=== PATIENT | male | born 1960 | race Caucasian/White ===

== ENCOUNTER 2019-12-02 18:07 | Emergency (ER) | payer SELFPAY ==
[2019-12-02] VITALS (23 sets, daily range): BP systolic 140–174; BP diastolic 83–147; PULSE 91–111; RESP 13–22; TEMP 36.2; O2SAT 93–96
--- NOTE | 2019-12-02 18:00 | RT.EKG_ITS ---
APPROVED REPORT Exam: Resting ECG Patient Location: E HR:102 bpm ECG Measurements Heart Rate 102 AXIS [place] [id number] P [id number] QRSd 101 QRS -72 QT 357 T 47 QTc 467 Conclusion Sinus, tachycardia with V rate 102, no st elevation
--- NOTE | 2019-12-02 18:51 | ED.GENADUL_ITS ---
Discharge Plan Disposition Patient Disposition: HOME Condition: Improving Discharge Details Chief Complaint: SOB Clinical Impression: Asthma exacerbation Primary Care Provider: Carol,Local ED Provider: Moy Baum Home Meds and New Rx's Prescriptions: New prednisone 20 mg tablet 60 mg PO DAILY 5 Days Qty: 15 RF: 0 Continued albuterol sulfate 90 mcg/actuation Hfa Aerosol Inhaler 2 puff INHALATION PRN PRNRF: 0 fluticasone propion-salmeterol [Advair Diskus] 250-50 mcg/dose Blister With Device 1 ea INHALATION DAILY RF: 0 Discharge Instructions Instructions: Asthma (ED), Bronchospasm (ED) Additional Instructions: Your COVID-19 test is pending. Please take the prednisone for its entire prescribed course. Resume your Advair twice daily. May use albuterol as needed 2 puffs up to every 4 hours. If you feel you need to use the inhaler more frequently, please return for reevaluation. Return to develop a fever, worsening breathing, or any other acute concerns. Your liver enzymes were slightly elevated Stand Alone Forms: PENDING COVID-19 TESTING Medical Decision Making 59-year-old male visiting his family from his home in [place]. He has been exposed to dust and dander from farm animals and now has 2 to 3 days of cough with wheezing. He has not had a fever nor significant production of sputum. States it feels like previous asthma exacerbations. He arrives with a slight tachycardia, no fever, oxygenating 95 to 96% on room air. Exam does reveal diffuse expiratory wheezes. Differential diagnosis includes exacerbation of underlying reactive airway disease, bronchitis, must exclude COVID-19 given his travel. IV access was established, patient given Solu-Medrol, inhaled beta agonists. He is referred for chest x-ray. Labs are reassuring with a white count 7.9, hematocrit 48, platelets 237. Sodium 137, potassium 3.4, chloride 99, bicarb 24, BUN 10, creatinine 1.0. Note of total bili of 2.0, AST 60, ALT 72. Troponin negative. Chest x-ray without focal infiltrate. Patient symptoms improved following steroids and beta agonist. Consistent with reactive airway disease exacerbation. Will treat with a burst of oral steroids, I have refilled his rescue inhaler as well as his Advair. Note is made of slightly increased liver enzymes which I discussed with the patient and he will have rechecked by his regular doctor. He does not have abdominal pain, nausea or other symptoms. He is stable and improved and appropriate for outpatient management of asthma exacerbation. HPI General Mode of arrival: ambulatory . Date/Time Provider Initiated Documentation: 12/02/19 18:37 . Limitations to Documentation: no limitations . Information obtained by: patient . History of Present Illness 59 year old M presents to the emergency department with the chief complaint of Cough and shortness of breath, described as moderate, and is localized to the chest. Patient reports no radiation. Patient started experiencing this day(s) and it has been constant. No relieving factors improve symptom(s), No exacerbating factors reported . Patient notes cough and shortness of breath; denies fever/chills. Patient did receive the following treatments prior to arrival, none Related Data Home Medications Medication Instructions Recorded Confirmed albuterol sulfate 2 puff INHALATION PRN PRN 12/02/19 12/02/19 fluticasone propion-salmeterol 1 ea INHALATION DAILY 12/02/19 12/02/19 [Advair Diskus] prednisone 60 mg PO DAILY 5 Days #15 tab 12/02/19 Previous Rx's Medication Instructions Recorded prednisone 60 mg PO DAILY 5 Days #15 tab 12/02/19 Allergies Allergy/AdvReac Type Severity Reaction Status Date / Time animal dander AdvReac Intermediate asthma Unverified 12/02/19 18:24 pollen extracts AdvReac Intermediate asthma Unverified 12/02/19 18:23 General Stated Complaint: SOB LEE: 2 Review of Systems Narrative: Ran out of albuterol, has misplaced Advair. Cough and recent travel. No chest pain. No production of sputum. Denies fever or chills. 6 systems reviewed and otherwise negative [facility] Social History Smoking/Tobacco Use Status: Former Tobacco Use Alcohol Intake: former Drug use: Current Sobriety Substance use type: does not use Details: has not smoked in years currently abstaining from alcohol no substance use in 10 years Do you feel safe at home: Yes Do you feel safe in your relationship?: Yes Exam Narrative Exam Narrative: GEN: awake, alert, oriented 3. Pleasant, well groomed, interactive. HEAD: Normocephalic, atraumatic ENT: Mucous membranes moist, oropharynx unremarkable, External ear exam unremarkable EYES: PERRL, EOMI NECK: Full ROM, no BRANDEN, no menigismus CHEST/RESP: Nontender, diffuse bilateral end expiratory wheeze CARDIOVASCULAR: Regular, tachycardic, no murmur, rub delisa. 2+ Rad pulse bilateral ABDOMEN: Soft, nontender, no mass. +Bowel sounds EXT: Full ROM, no edema, no rash Neuro: Grossly normal neurologic exam, conversant, interactive. Psych: Speech fluent, thoughts congruent, affect normal Course Vital Signs Vital signs: Vital Signs Temperature 36.2 C L 12/02/19 18:15 Pulse 111 H 12/02/19 18:15 Respiratory Rate 20 12/02/19 18:15 Blood Pressure 174/103 H 12/02/19 18:15 Pulse Oximetry 96 12/02/19 18:15 Temperature 36.2 C L 12/02/19 18:15 Temperature Source Skin 12/02/19 18:15 Pulse 111 H 12/02/19 18:15 Respiratory Rate 20 12/02/19 18:15 Respiratory Effort Incrsd Work of Breathing 12/02/19 18:25 Blood Pressure 174/103 H 12/02/19 18:15 Pulse Oximetry 96 12/02/19 18:15 Oxygen Delivery Method Room Air 12/02/19 18:15 Oxygen Flow Rate 0 12/02/19 18:15 Pain Level 0 12/02/19 18:15
[2019-12-02 19:24] LABS: Abs Immature Grans 0.02 10^3/uL (0.0-0.06); Absolute Basophil Count 0.04 10^3/uL (0.0-0.2); Absolute Eosinophil Count 0.31 10^3/uL (0.0-0.7); Absolute Lymphocyte Count 1.28 10^3/uL (1.2-3.4); Absolute Monocyte Count 0.79 10^3/uL (0.1-0.8); Absolute Neutrophil Count 5.47 10^3/uL (1.2-6.7); Basophils % 0.5; Eosinophils % 3.9; HCT 48.6 % (40.0-50.0); HGB 17.6 g/dL (13.5-17.5); Immature Grans % 0.3; Lymphocytes % 16.2; MCHC 36.2 % (32.0-36.0); MPV 10.6 fL (8.0-11.0); Neutrophils % 69.1; Nucleated RBC 0 %; Platelet Count 237 10^3/uL (130-400); RBC 5.34 10^6/uL (4.36-5.78); RDW 11.4 % (11.8-14.1); RDW-SD 37.9 fL; WBC 7.91 10^3/uL (4.4-10.8)
[2019-12-02] MEDS: Budesonide/Formoterol 160/4.5 6 GM 60 PUFF INH IH (19:40)
[2019-12-02 19:43] LABS: ALT 72 U/L (16-63); AST 60 U/L (15-37); Albumin 4.5 g/dL (3.4-5.0); Alkaline Phosphatase 97 U/L (46-116); Anion Gap 13.3 mmol/L (3-11); BUN 10 mg/dL (7-18); CO2 24.7 mmol/L (21.0-32.0); CREATININE 1.07 mg/dL (0.70-1.30); Calcium 9.4 mg/dL (8.5-10.1); Chloride 99 mmol/L (98-107); Glucose 110 mg/dL (74-106); Potassium 3.4 mmol/L (3.5-5.1); Sodium 137 mmol/L (136-145); Total Protein 8.2 g/dL (6.4-8.2); Troponin I < 0.05 ng/mL (<0.06)
--- NOTE | 2019-12-02 19:48 | DI.RAD_ITS ---
EXAM: XR PORTABLE CHEST AP CLINICAL HISTORY: cough, wheeze TECHNIQUE: 2D digital imaging was performed. COMPARISON: No exams were available for comparison FINDINGS: MEDIASTINUM: Normal. HEART: Normal. PULMONARY VASCULATURE: Normal. LUNGS: Clear. PLEURAL SPACE: No pleural effusion or pneumothorax. BONE:Within normal limits for the patient's age. OTHER FINDINGS:Normal. IMPRESSION: No acute pulmonary findings. DATA REPOSITORY: RADIATION DOSE DELIVERED:
--- NOTE | 2019-12-02 20:01 | DI.VRAD_ITS ---
PROCEDURE INFORMATION: Exam: XR Chest, 1 View Exam date and time: 12/02/2019 7:49 PM Age: 59 years old Clinical indication: Cough and wheezing TECHNIQUE: Imaging protocol: XR of the chest Views: 1 view. COMPARISON: No relevant prior studies available. FINDINGS: Lungs: Lungs are adequately inflated and symmetric. No focal consolidation or pulmonary edema. Pleural space: No pleural effusion. No pneumothorax. Heart/Mediastinum: Cardiomediastinal contours within normal limits. Bones/joints: No acute osseous finding. IMPRESSION: No acute cardiopulmonary finding. Dictated and Authenticated by: Pasquale Dey MD. Ordering:EARNEST Winter MD
[2019-12-05 19:22] LABS: Patient Race White; SARS-CoV-2 RNA Undetected (Undetected); SARS-CoV-2 Specimen Source Nasopharynx
--- NOTE | 2019-12-07 09:14 | NUR.NOTE ---
12/07/19 0912 Patient notified of negative Covid results.
== END 2019-12-02 20:24 | disposition home or self-care (01) ==
PROVIDERS: Emergency Provider Emergency Medicine
DX: J45.901 Unspecified asthma with (acute) exacerbation (principal); Z87.891 Personal history of nicotine dependence; Z11.59 Encounter for screening for other viral diseases
CPT/HCPCS: 36415; 80053; 93005; 99284; U0003; 71045; 83735; 84484; 85025; 93010

== ENCOUNTER 2019-12-20 15:46 | Emergency (ER) | payer SELFPAY ==
[2019-12-20] VITALS (34 sets, daily range): BP systolic 138–176; BP diastolic 88–107; PULSE 104–114; RESP 8–26; TEMP 37–37.4; O2SAT 90–97
[2019-12-20] MEDS: LORazepam 2 MG/ML VIAL 1 MG IVP (16:27)
[2019-12-20] MEDS: Ondansetron 4 MG/2 ML VIAL IVP (16:27)
[2019-12-20] MEDS: Normal Saline 1,000 ML 1000 ML IV ×2 (16:28→17:34)
[2019-12-20 16:36] LABS: Abs Immature Grans 0.03 10^3/uL (0.0-0.06); Absolute Basophil Count 0.03 10^3/uL (0.0-0.2); Absolute Eosinophil Count 0.03 10^3/uL (0.0-0.7); Absolute Lymphocyte Count 1.53 10^3/uL (1.2-3.4); Absolute Monocyte Count 0.49 10^3/uL (0.1-0.8); Absolute Neutrophil Count 5.29 10^3/uL (1.2-6.7); Basophils % 0.4; Eosinophils % 0.4; HCT 49.1 % (40.0-50.0); HGB 17.6 g/dL (13.5-17.5); Immature Grans % 0.4; Lymphocytes % 20.7; MCHC 35.8 % (32.0-36.0); MCV 91.9 fL (80-95); MPV 9.9 fL (8.0-11.0); Monocytes % 6.6; Neutrophils % 71.5; Nucleated RBC 0 %; Platelet Count 275 10^3/uL (130-400); RBC 5.34 10^6/uL (4.36-5.78); RDW 12.1 % (11.8-14.1)
[2019-12-20] MEDS: THIAMINE 100 MG in Normal Saline 100 ML 200 MG IVPB (16:46)
[2019-12-20 16:47] LABS: ALT 165 U/L (16-63); AST 101 U/L (15-37); Albumin 4.2 g/dL (3.4-5.0); Alkaline Phosphatase 114 U/L (46-116); Anion Gap 17.8 mmol/L (3-11); BUN 8 mg/dL (7-18); Bilirubin, Total 1.2 mg/dL (0.2-1.0); CO2 23.2 mmol/L (21.0-32.0); CREATININE 1.06 mg/dL (0.70-1.30); Calcium 8.3 mg/dL (8.5-10.1); Chloride 98 mmol/L (98-107); Glucose 114 mg/dL (74-106); Magnesium 2.1 mg/dL (1.8-2.4); Potassium 3.4 mmol/L (3.5-5.1); Sodium 139 mmol/L (136-145); Total Protein 7.9 g/dL (6.4-8.2)
[2019-12-20 16:49] LABS: ETHANOL BLOOD > 300.0 mg/dL (<3)
[2019-12-20] MEDS: Potassium Chloride 20 MEQ TABCR 40 MEQ PO (16:59)
--- NOTE | 2019-12-20 17:12 | W.ED.GENAD ---
Discharge Plan Disposition Patient Disposition: HOME Condition: Fair Discharge Details Clinical Impression: Alcohol intoxication Primary Care Provider: Becky Medina ED Provider: Mirna Moore Home Meds and New Rx's Prescriptions: Continued albuterol sulfate 90 mcg/actuation Hfa Aerosol Inhaler 2 puff INHALATION PRN PRNRF: 0 fluticasone propion-salmeterol [Advair Diskus] 250-50 mcg/dose Blister With Device 1 ea INHALATION DAILY RF: 0 Discharge Instructions Instructions: Alcohol Intoxication (ED) Additional Instructions: do not drink alcohol. use resources provided for alcohol rehabilitation Referrals: Becky Medina [Primary Care Provider] - (follow up with pcp as soon as possible. ) Medical Decision Making Patient presents for what he states is acute alcohol withdrawal. He states he feels nauseated, having abdominal pain, feels shaky. States he last drank at 11 AM. Denies any history of alcohol seizures. Will establish IV given 2 L of normal saline infused. Is given Ativan 1 mg IV push and received thiamine 100 mg IV. Received Protonix 40 mg IV push and GI cocktail with some improvement in his symptoms. A golf coach was consulted and she came in and met with him. Plan is for outpatient follow-up. He is with his mother both are in agreement with this plan he is medically stable, tolerating p.o. and is ready for discharge to home will follow-up with outpatient rehab Lab Data Lab results reviewed: Yes I reviewed the patient's lab results. Lab results narrative: Laboratory Tests Range/Units 12/20/19 12/20/19 12/20/19 16:20 16:20 16:20 WBC (4.4-10.8) 10^3/uL 7.40 RBC (4.36-5.78) 10^6/uL 5.34 Hgb (13.5-17.5) g/dL 17.6 H Hct (40.0-50.0) % 49.1 MCV (80-95) fL 91.9 MCH (27.0-33.0) pg 33.0 MCHC (32.0-36.0) % 35.8 RDW (11.8-14.1) % 12.1 Plt Count (130-400) 10^3/uL 275 MPV (8.0-11.0) fL 9.9 Immature Gran % 0.4 Neutrophils % 71.5 Lymphocytes % 20.7 Monocytes % 6.6 Eosinophils % 0.4 Basophils % 0.4 Nucleated RBC % % 0 Absolute Neutrophils (1.2-6.7) 10^3/uL 5.29 Absolute Lymphocytes (1.2-3.4) 10^3/uL 1.53 Absolute Monocytes (0.1-0.8) 10^3/uL 0.49 Absolute Eosinophils (0.0-0.7) 10^3/uL 0.03 Absolute Basophils (0.0-0.2) 10^3/uL 0.03 Sodium (136-145) mmol/L 139 Potassium (3.5-5.1) mmol/L 3.4 L Chloride (98-107) mmol/L 98 Carbon Dioxide (21.0-32.0) mmol/L 23.2 Anion Gap (3-11) mmol/L 17.8 H BUN (7-18) mg/dL 8 Creatinine (0.70-1.30) mg/dL 1.06 Estimated GFR/1.73 m2 (mL/min/1.73m2) >= 60.00 Glucose (74-106) mg/dL 114 H Calcium (8.5-10.1) mg/dL 8.3 L Magnesium (1.8-2.4) mg/dL 2.1 Total Bilirubin (0.2-1.0) mg/dL 1.2 H AST (15-37) U/L 101 H ALT (16-63) U/L 165 H Alkaline Phosphatase (46-116) U/L 114 Total Protein (6.4-8.2) g/dL 7.9 Albumin (3.4-5.0) g/dL 4.2 Lipase (73-393) U/L 280 Ethyl Alcohol (<3) mg/dL > 300.0 HPI General Date/Time Provider Initiated Documentation: 12/20/19 15:53. Limitations to Documentation: no limitations. Information obtained by: patient and family (Mother). HPI Narrative: This is a 59-year-old male patient with a significant history of alcohol abuse who states he has gone through alcohol withdrawal but no withdrawal seizures who presents to the emergency department with reports of anxiety nausea states his last drink was at 11 this morning states he has been drinking heavily for 3 days. Previously has been sober for a month prior to that. He has had no fevers no chills or recent illness. Is reporting nausea with no vomiting Related Data Home Medications Medication Instructions Recorded Confirmed albuterol sulfate 2 puff INHALATION PRN PRN 12/02/19 12/20/19 fluticasone propion-salmeterol 1 ea INHALATION DAILY 12/02/19 12/20/19 [Advair Diskus] Allergies Allergy/AdvReac Type Severity Reaction Status Date / Time animal dander AdvReac Intermediate asthma Unverified 12/20/19 16:00 pollen extracts AdvReac Intermediate asthma Unverified 12/20/19 16:00 General Stated Complaint: ETOHWithdr LEE: 3 Review of Systems Constitutional Constitutional: Reports system reviewed and no additional complaints, except as documented and Denies fever(s) ENT Ears, Nose, Mouth, and Throat: Denies dizziness Cardiovascular Cardiovascular: Denies chest pain and Denies dyspnea Respiratory Respiratory: Denies cough and Denies dyspnea Gastrointestinal Gastrointestinal: Denies coffee ground emesis, Denies constipation, Denies diarrhea, Reports nausea and Denies vomiting Musculoskeletal Musculoskeletal: Denies arthralgias and Denies joint swelling Integumentary/Breasts Skin/Breast: Denies lesions Neurologic Neurologic: Denies confusion and Denies dizziness Psychiatric Psychiatric: Denies confusion, Denies homicidal ideation and Denies suicidal ideation Hematologic/Lymphatic Hematologic/Lymphatic: Denies easy bleeding and Denies easy bruising [facility] Social History Smoking/Tobacco Use Status: Former Tobacco Use Alcohol Intake: current Alcohol Intake frequency: a few times a week Alcohol type: hard liquor Drug use: Never Substance use type: does not use Details: has not smoked in years currently abstaining from alcohol no substance use in 10 years Do you feel safe at home: Yes Do you feel safe in your relationship?: Yes Exam Const Nutritional Appearance: overweight Orientation: alert, awake and oriented x3 Other: Intoxicated HENMT Head: normal to inspection, normocephalic and atraumatic Resp Effort & Inspection: normal respiratory effort Auscultation: clear to auscultation bilaterally Cardio Rate: tachycardic Rhythm: regular rhythm GI Inspection: normal to inspection Palpation: soft Auscultation: normal bowel sounds Skin Lesions: no lesions Rashes: no rashes Course Vital Signs Vital signs: Vital Signs Temperature 37 C 12/20/19 15:56 Pulse 114 H 12/20/19 15:56 Respiratory Rate 18 12/20/19 15:56 Blood Pressure 157/107 H 12/20/19 15:56 Pulse Oximetry 97 12/20/19 15:56 Temperature 37.4 C 12/20/19 16:26 Temperature Source Tympanic 12/20/19 16:26 Pulse 109 H 12/20/19 17:00 Pulse 108 H 12/20/19 17:01 Respiratory Rate 18 12/20/19 17:01 Respiratory Effort Non-Labored 12/20/19 16:00 Respiratory Pattern Normal 12/20/19 16:34 Blood Pressure 145/96 H 12/20/19 17:00 Blood Pressure Mean 108 12/20/19 17:00 Blood Pressure Position Sitting 12/20/19 15:56 Pulse Oximetry 93 12/20/19 16:45 Oxygen Delivery Method Room Air 12/20/19 16:26 Oxygen Flow Rate 0 12/20/19 16:26 Pain Level 9 12/20/19 15:56 Lab/Test Results Lab/Test Results: Laboratory Tests Range/Units 12/20/19 12/20/19 16:20 16:20 WBC (4.4-10.8) 10^3/uL 7.40 RBC (4.36-5.78) 10^6/uL 5.34 Hgb (13.5-17.5) g/dL 17.6 H Hct (40.0-50.0) % 49.1 MCV (80-95) fL 91.9 MCH (27.0-33.0) pg 33.0 MCHC (32.0-36.0) % 35.8 RDW (11.8-14.1) % 12.1 Plt Count (130-400) 10^3/uL 275 MPV (8.0-11.0) fL 9.9 Immature Gran % 0.4 Neutrophils % 71.5 Lymphocytes % 20.7 Monocytes % 6.6 Eosinophils % 0.4 Basophils % 0.4 Nucleated RBC % % 0 Absolute Neutrophils (1.2-6.7) 10^3/uL 5.29 Absolute Lymphocytes (1.2-3.4) 10^3/uL 1.53 Absolute Monocytes (0.1-0.8) 10^3/uL 0.49 Absolute Eosinophils (0.0-0.7) 10^3/uL 0.03 Absolute Basophils (0.0-0.2) 10^3/uL 0.03 Sodium (136-145) mmol/L 139 Potassium (3.5-5.1) mmol/L 3.4 L Chloride (98-107) mmol/L 98 Carbon Dioxide (21.0-32.0) mmol/L 23.2 Anion Gap (3-11) mmol/L 17.8 H BUN (7-18) mg/dL 8 Creatinine (0.70-1.30) mg/dL 1.06 Estimated GFR/1.73 m2 (mL/min/1.73m2) >= 60.00 Glucose (74-106) mg/dL 114 H Calcium (8.5-10.1) mg/dL 8.3 L Magnesium (1.8-2.4) mg/dL 2.1 Total Bilirubin (0.2-1.0) mg/dL 1.2 H AST (15-37) U/L 101 H ALT (16-63) U/L 165 H Alkaline Phosphatase (46-116) U/L 114 Total Protein (6.4-8.2) g/dL 7.9 Albumin (3.4-5.0) g/dL 4.2 Ethyl Alcohol (<3) mg/dL > 300.0
[2019-12-20 18:19] LABS: Lipase 280 U/L (73-393)
[2019-12-20] MEDS: Pantoprazole 40 MG VIAL IVP (18:19)
[2019-12-20] MEDS: Lidocaine 2% Viscous 15 ML CUP (19:14)
[2019-12-20] MEDS: Mylanta Suspension 30 ML CUP (19:15)
== END 2019-12-20 19:40 | disposition home or self-care (01) ==
PROVIDERS: Emergency Provider Nurse Practitioner Acute Care
DX: F10.230 Alcohol dependence with withdrawal, uncomplicated (principal); F10.220 Alcohol dependence with intoxication, uncomplicated; Y90.8 Blood alcohol level of 240 mg/100 ml or more; R11.0 Nausea; F41.9 Anxiety disorder, unspecified
CPT/HCPCS: 36415; 80053; 83690; 96361; 96365; 96375; 99284; 80320; 83735; 85025; J2060; J2405

== ENCOUNTER 2019-12-22 01:36 | Emergency (ER) | payer SELFPAY ==
--- NOTE | 2019-12-22 01:30 | DI.CT_ITS ---
EXAM: CT ABDOMEN PELVIS W CLINICAL HISTORY: abdominal pain, nausea vomit. TECHNIQUE: Imaging Protocol: Axial computed tomography images with coronal and sagittal reformatted images were created and reviewed CONTRAST MATERIAL: Intravenous: Omnipaque 350 Contrast volume:100 cc Oral: / no COMPARISON: No exams were available for comparison FINDINGS: ABDOMEN: Lung Bases: Normal where visualized. Liver: Marked fatty infiltration.. No measurable mass. Gallbladder and biliary tract: Status post cholecystectomy. No biliary dilatation. Pancreas: Normal density, no abnormal calcifications or inflammatory process. Spleen: Normal. Kidneys: Normal size, contour and axis. No radiodense stones or obstructive uropathy. No masses seen. Adrenal glands: No masses seen. Abdominal Aorta: Abdominal portion non-dilated. Mild atherosclerotic changes. Retro aortic left r enal vein. PELVIS: Bladder: Symmetric distention, no gross wall thickening. Bowel: Diverticulosis of the sigmoid. No evidence of diverticulitis. There is a question of mild wa ll thickening of the ascending colon which could indicate colitis. The patient is status post append ectomy. There is no small bowel dilatation. Peritoneal cavity: No ascites, collection or mesenteric inflammatory response. Bones: Right hip prosthesis. Mild degenerative changes in the spine. Reproductive organs: Within normal limits. Lymph nodes: Unremarkable. Impression: Sigmoid diverticulosis. Question wall thickening versus nondistention of the ascending colon. Fatty liver. RADIATION DOSE DELIVERED: 835.17mGy.cm Total DLP DATA REPOSITORY: All CT scans at this facility are submitted to the National Radiology Data Registry (NRDR) Dose Index Registry (DIR) with the [employer] (ACR). RADIATION OPTIMIZATION: All CT scans at this facility use at least one of these dose optimization te chniques: automated exposure control; mA and/or kV adjustment per patient size (includes targeted exa ms where dose is matched to clinical indication); or iterative reconstruction.
[2019-12-22 01:40] VITALS: BP 186/102; PULSE 95; RESP 20; TEMP 36.5
--- NOTE | 2019-12-22 01:46 | ED.GENADUL_ITS ---
Discharge Plan Disposition Patient Disposition: HOME Condition: Stable Discharge Details Clinical Impression: Alcohol withdrawal, Abdominal pain Primary Care Provider: None,None ED Provider: Alfonzo Giordano Home Meds and New Rx's Prescriptions: New lorazepam 2 mg tablet See Rx Instructions .ROUTE .COMPLEX PRNQty: 12 RF: 0 Continued albuterol sulfate 90 mcg/actuation Hfa Aerosol Inhaler 2 puff INHALATION PRN PRNRF: 0 fluticasone propion-salmeterol [Advair Diskus] 250-50 mcg/dose Blister With Device 1 ea INHALATION DAILY RF: 0 Discharge Instructions Instructions: Abuse of Alcohol (ED), Alcohol Withdrawal (ED) Additional Instructions: do not drink alcohol if you take the lorazepam [facility] number is [phone] if you feel you are becoming more ill, have severe worsening pain or persistent vomit return to the emergency department Medical Decision Making 59 yo male with hx of alcohol abuse who was sober for 7 months but recently relapsed comes in with complaint of feeling like he is in withdrawal. Was seen for same 2 days ago and improved with IV ativan and met with head golf coach and d/c'd home but started drinking again and last drank aroud 8am yesterday and tonight started to feel shaky and have persistent dry heaves. Denies chest pain/pressure, does have some abdominal discomfort and is tender without guarding in the mid abdomen. Mild tremors of his hands, states he does feel anx ious. suspect alcohol withdrawal and will tx with ativan, evaluate for pancreatitis and also obtain ct to evaluate for possible sbo given his pain and reassess. Denies other drug use pt feels much better after ativan, no longer has abodminal tenderness, labs show no acute changes, has mild elevation in lft's likely from alcohol use. He has no tremors now, no tachycardia and feels well enough to go home. He would like to start medication to help him through the symptoms of withdrawal. HAd long discusssion of pros and cons and he understands the risks of drinking alcohol with medication such as ativan and has capacity to make his own decisions and would still like to try it. Will start oral ativan taper. ADvised to call head golf coach in the AM and return precautions given Differential Diagnosis Differential Diagnosis: anxiety, alcohol withdrawal, sbo, pancreatitis Medical Records Medical records reviewed: Yes I reviewed the patient's medical records. Imaging Data Radiologic Study: Attestation: I personally reviewed and interpreted this imaging study as follows: Imaging: CT Scan Radiologist's impression: nonobstucted nonspecific bowel gas pattern Lab Data Lab results reviewed: Yes I reviewed the patient's lab results. HPI General Mode of arrival: ambulatory . Date/Time Provider Initiated Documentation: 12/22/19 01:37 . Limitations to Documentation: no limitations . Information obtained by: patient . History of Present Illness 59 year old M presents to the emergency department with the chief complaint of alcohol withdrawal, described as moderate, Patient started experiencing this hour(s) (12) and it has been constant. No relieving factors improve symptom(s), No exacerbating factors reported . Patient did receive the following treatments prior to arrival, none Related Data Home Medications Medication Instructions Recorded Confirmed albuterol sulfate 2 puff INHALATION PRN PRN 12/02/19 12/22/19 fluticasone propion-salmeterol 1 ea INHALATION DAILY 12/02/19 12/22/19 [Advair Diskus] lorazepam See Rx Instructions .ROUTE 12/22/19 .COMPLEX PRN #12 tab Previous Rx's Medication Instructions Recorded lorazepam See Rx Instructions .ROUTE 12/22/19 .COMPLEX PRN #12 tab Allergies Allergy/AdvReac Type Severity Reaction Status Date / Time animal dander AdvReac Intermediate asthma Unverified 12/20/19 16:00 pollen extracts AdvReac Intermediate asthma Unverified 12/20/19 16:00 General Stated Complaint: ETOHWithdr LEE: 2 Review of Systems All systems reviewed & are unremarkable except as noted in HPI and below Constitutional Constitutional: Denies chills, Denies fever(s) and Denies weakness Cardiovascular Cardiovascular: Denies chest pain and Denies dyspnea Respiratory Respiratory: Denies cough and Denies dyspnea Musculoskeletal Musculoskeletal: Denies joint swelling Neurologic Neurologic: Denies weakness Psychiatric Psychiatric: Denies depression [facility] Medical History (Updated 12/22/19 @ 02:47 by Alfonzo Giordano MD) Hypertension Social History Smoking/Tobacco Use Status: Former Tobacco Use Alcohol Intake: current Alcohol Intake frequency: a few times a week Alcohol type: hard liquor Drug use: Never Substance use type: does not use Details: has not smoked in years (last smoked a couple weeks ago) currently abstaining from alcohol (has been drinking recently) no substance use in 10 years Do you feel safe at home: Yes Do you feel safe in your relationship?: Yes Exam Const General: no acute distress Orientation: alert HENMT Head: normal to inspection Ears: external ears normal General nose exam: external nose normal Mouth: moist mucous membranes Eyes General: appearance normal, both eyes and all related structures Neck Neck: normal visual inspection Resp Effort & Inspection: normal respiratory effort and able to speak in complete sen tences Cardio Rate: regular rate GI Palpation: soft and tender Skin General skin exam: no rashes or lesions noted Neuro General: patient alert and patient oriented x3 Extrem General: normal to inspection Psych Mental Status: mental status grossly normal Course Vital Signs Vital signs: Vital Signs Temperature 36.5 C 12/22/19 01:40 Pulse 95 H 12/22/19 01:40 Respiratory Rate 20 12/22/19 01:40 Blood Pressure 186/102 H 12/22/19 01:40 Temperature 36.5 C 12/22/19 01:40 Temperature Source Skin 12/22/19 01:40 Pulse 95 H 12/22/19 01:40 Respiratory Rate 20 12/22/19 01:40 Respiratory Effort Non-Labored 12/22/19 01:43 Blood Pressure 186/102 H 12/22/19 01:40 Blood Pressure Position Sitting 12/22/19 01:40 Oxygen Delivery Method Room Air 12/22/19 01:40 Oxygen Flow Rate 0 12/22/19 01:40 Pain Level 9 12/22/19 01:40
[2019-12-22] MEDS: LORazepam 2 MG/ML VIAL 1 MG IVP (01:55)
[2019-12-22] MEDS: Normal Saline Flush 10 ML SYR IVP ×2 (01:56→02:27)
[2019-12-22] MEDS: Normal Saline 1,000 ML 1000 ML IV (01:56)
[2019-12-22 01:59] LABS: Abs Immature Grans 0.01 10^3/uL (0.0-0.06); Absolute Basophil Count 0.04 10^3/uL (0.0-0.2); Absolute Eosinophil Count 0.07 10^3/uL (0.0-0.7); Absolute Lymphocyte Count 1.06 10^3/uL (1.2-3.4); Absolute Neutrophil Count 5.86 10^3/uL (1.2-6.7); Basophils % 0.5; Eosinophils % 0.9; HCT 46.1 % (40.0-50.0); HGB 16.1 g/dL (13.5-17.5); Immature Grans % 0.1; Lymphocytes % 14.1; MCH 32.5 pg (27.0-33.0); MCHC 34.9 % (32.0-36.0); MCV 93.1 fL (80-95); Monocytes % 6.6; Neutrophils % 77.8; Nucleated RBC 0 %; Platelet Count 193 10^3/uL (130-400); RBC 4.95 10^6/uL (4.36-5.78); RDW-SD 41.7 fL; WBC 7.54 10^3/uL (4.4-10.8)
[2019-12-22 02:07] VITALS: BP 141/90
[2019-12-22 02:13] LABS: ALT 115 U/L (16-63); AST 65 U/L (15-37); Albumin 4.1 g/dL (3.4-5.0); Alkaline Phosphatase 106 U/L (46-116); Anion Gap 15.1 mmol/L (3-11); BUN 8 mg/dL (7-18); Bilirubin, Direct 0.66 mg/dL (0.00-0.20); Bilirubin, Total 2.5 mg/dL (0.2-1.0); CO2 23.9 mmol/L (21.0-32.0); Calcium 8.9 mg/dL (8.5-10.1); Chloride 99 mmol/L (98-107); Glucose 96 mg/dL (74-106); Lipase 455 U/L (73-393); Magnesium 1.9 mg/dL (1.8-2.4); PTT Activated 24.9 sec (21.0-31.4); Potassium 3.4 mmol/L (3.5-5.1); Prothrombin Time 10.4 sec (9.3-11.0); Sodium 138 mmol/L (136-145); Total Protein 7.4 g/dL (6.4-8.2)
[2019-12-22 02:15] LABS: ETHANOL BLOOD < 3.0 mg/dL (<3)
[2019-12-22 02:26] VITALS: O2SAT 100
[2019-12-22] MEDS: Omnipaque 350 MG/ML 100 ML BTL IJ (02:26)
[2019-12-22] MEDS: Normal Saline - Diluent 50 ML VIAL IV (02:27)
[2019-12-22 02:30] VITALS: O2SAT 99
[2019-12-22 02:36] VITALS: BP 164/91; PULSE 85; O2SAT 99
[2019-12-22 02:56] VITALS: BP 164/91; PULSE 85; RESP 16; TEMP 36.5; O2SAT 99
[2019-12-22] MEDS: LORazepam 1 MG TAB 2 MG PO (02:56)
--- NOTE | 2019-12-24 16:03 | DI.VRAD_ITS ---
PROCEDURE INFORMATION: Exam: CT Abdomen And Pelvis With Contrast Exam date and time: 12/22/2019 1:47 AM Age: 59 years old Clinical indication: Generalized; Prior surgery; Surgery date: 6+ months; Surgery type: Appendectomy, cholecystectomy R hip replacement; Patient HX: Abdominal pain mid abdomen for a few days, diarrhea, vomiting, nausea TECHNIQUE: Imaging protocol: Computed tomography of the abdomen and pelvis with intravenous contrast. Radiation optimization: All CT scans at this facility use at least one of these dose optimization techniques: automated exposure control; mA and/or kV adjustment per patient size (includes targeted exams where dose is matched to clinical indication); or iterative reconstruction. Contrast material: OMNIPAQUE 350; Contrast volume: 100 ml; Contrast route: INTRAVENOUS (IV); COMPARISON: No relevant prior studies available. FINDINGS: Liver: Hepatomegaly and diffuse fatty infiltrationNo mass. Gallbladder and bile ducts: Prior cholecystectomy. No ductal dilation. Pancreas: Normal. No ductal dilation. Spleen: Normal. No splenomegaly. Adrenals: Normal. No mass. Kidneys and ureters: Normal. No hydronephrosis. Stomach and bowel: No obstruction. Question mild mucosal thickening. Appendix: Prior appendectomy Intraperitoneal space: Unremarkable. No free air. No significant fluid collection. Vasculature: Unremarkable. No abdominal aortic aneurysm. Lymph nodes: Unremarkable. No enlarged lymph nodes. Urinary bladder: Unremarkable as visualized. Reproductive: Unremarkable as visualized. Bones/joints: Right hip arthroplasty noted . Degenerative changes in the spine No acute fracture. Soft tissues: Unremarkable. IMPRESSION: Nonspecific nonobstructed bowel gas pattern. Correlate for mild enteritis Nonurgent findings as described Dictated and Authenticated by: Bob Alvarez MD. Ordering:FREDY Mejía MD
== END 2019-12-22 03:00 | disposition home or self-care (01) ==
PROVIDERS: Emergency Provider Emergency Medicine
DX: F10.230 Alcohol dependence with withdrawal, uncomplicated (principal); R25.1 Tremor, unspecified; R10.33 Periumbilical pain; R74.8 Abnormal levels of other serum enzymes; I10 Essential (primary) hypertension
CPT/HCPCS: 36415; 80053; 83690; 96361; 96374; 99285; 74177; 80320; 82248; 83735; 85025; 85610; 85730; 99284; J2060; J3490

== ENCOUNTER 2020-02-10 11:06 | Outpatient (REF) | payer MEDICAID, SELFPAY ==
[2020-02-13 09:16] LABS: COVID-19 RT-PCR UVMMC Result Negative (Negative)
== END 2020-02-10 11:26 ==
LOC: NCHCN 11:06
PROVIDERS: PCP Physician Assistant; Visit Provider Physician Assistant
DX: Z20.828 Contact with and (suspected) exposure to other viral communicable diseases (principal)
CPT/HCPCS: U0003

== ENCOUNTER 2020-02-14 09:03 | Emergency (ER) | payer MEDICAID, SELFPAY ==
[2020-02-14] VITALS (27 sets, daily range): BP systolic 137–166; BP diastolic 88–139; PULSE 101–132; RESP 10–22; TEMP 36.5; O2SAT 89–97
--- NOTE | 2020-02-14 09:00 | RT.EKG_ITS ---
APPROVED REPORT Exam: Resting ECG Patient Location: E HR:120 bpm ECG Measurements Heart Rate 120 AXIS MD 135 P 0 QRSd 87 QRS -88 QT 328 T 39 QTc 464 Conclusion Sinus tachycardia...rate> 99 Inferior infarct, old...Q >35mS, II III aVF
--- NOTE | 2020-02-14 09:15 | DI.CT_ITS ---
EXAM: CT CHEST PE CTA CLINICAL HISTORY: dyspnea, tachycardia, chest tightness. TECHNIQUE: Imaging Protocol: CT angiography of the chest was performed using pulmonary embolus jayro col. Multi planar reconstructions were performed. CONTRAST MATERIAL: Intravenous: Omnipaque 350 Contrast volume:100 ml COMPARISON: CT CT ABDOMEN PELVIS W from 12/22/2019 FINDINGS: CHEST: PULMONARY ARTERIES: There are no intraluminal filling defects to suggest acute pulmonary emboli. LUNGS: There is no evidence of pulmonary infarction. No pleural effusions. No infiltrates or nodule s. MEDIASTINUM: There is no hilar nor mediastinal adenopathy. Visualized thyroid unremarkable. CARDIAC: Heart size is normal. There is no pericardial effusion.Caliber of the thoracic aorta is wit hin normal limits. No evidence of aortic dissection. OSSEOUS: No significant osseous lesions.. IMPRESSION: 1. No evidence of acute pulmonary emboli. No evidence of pulmonary infarction. 2. No infiltrates, lung nodules, or pleural effusions. No intrathoracic adenopathy. 3. Hepatic steatosis incidentally noted. RADIATION DOSE DELIVERED: 490.5mGy.cm Total DLP 490.5mGy.cm Total DLP DATA REPOSITORY: All CT scans at this facility are submitted to the National Radiology Data Registry (NRDR) Dose Index Registry (DIR) with the [employer] (ACR). RADIATION OPTIMIZATION: All CT scans at this facility use at least one of these dose optimization te chniques: automated exposure control; mA and/or kV adjustment per patient size (includes targeted exa ms where dose is matched to clinical indication); or iterative reconstruction.
--- NOTE | 2020-02-14 09:24 | ED.GENADUL_ITS ---
Discharge Plan Disposition Patient Disposition: HOME Condition: Stable Discharge Details Clinical Impression: Shortness of breath Primary Care Provider: Farzana Euceda ED Provider: Alfonzo Giordano Home Meds and New Rx's Prescriptions: New albuterol sulfate 90 mcg/actuation HFA aerosol inhaler 2 puff inhalation Q6H PRNQty: 18 RF: 0 lorazepam 1 mg tablet 1 mg PO TID PRN (Reason: anxiety) Qty: 14 RF: 0 Continued lorazepam 2 mg tablet See Rx Instructions .ROUTE .COMPLEX PRNQty: 12 RF: 0 sertraline [Zoloft] 50 mg Tablet 50 mg PO DAILY RF: 0 albuterol sulfate 90 mcg/actuation Hfa Aerosol Inhaler 2 puff INHALATION PRN PRNRF: 0 fluticasone propion-salmeterol [Advair Diskus] 250-50 mcg/dose Blister With Device 1 ea INHALATION DAILY RF: 0 Discharge Instructions Instructions: Dyspnea (ED) Care Plan Goals: your covid test from Saturday was negative continue to quarantine until the test we sent today is back, youll be contacted with results follow up as scheduled with your primary care provider Saturday do not drink alcohol or drive if you take the ativan (lorazepam) if you feel more ill, have worsening difficulty breathing or severe pain return to the emergency department Stand Alone Forms: PENDING COVID-19 TESTING Medical Decision Making 59 yo male with hx of asthma and alcohol abuse comes in with complaints of feeling short of breath with chest tightness and subjective feeling of being warm, hasn't checked his temperature, for 2 days. He left an alcohol treatment facility 10 days ago where he states there were positive covid cases. He has had a cough as well. He has relapsed into drinking and states last alcohol use was Saturday night. He arrives tachycardic with normal oxygenation, hypertensive and appears anxious on exam. Has mild wheezing at the bases bilaterally otherwise clear lungs, no leg swelling, calf pain or jvd. No murmurs, and denies drug use. I suspect he could be in alcohol withdrawal given the anxiousness, tachycardia and hypertension, will treat with ativan. Does have mild wheezing, will treat with steroids and neb. Given the dyspnea and chest tightness will obtain CTA to evaluate for possible PE.Will obtain troponin to evaluate for acs as well. No tearing back pain so doubt dissection patient's labs show lactate of 2.[address] and ct shows no acute findings. He is much less anxious and feels significantly better and is requesting d/c and doesn't want to wait for repeat lactate which I suspect is from dehydration. He will f/u as scheduled with his pcp Saturday return precautions given Differential Diagnosis Differential Diagnosis: withdrawal, asthma, pe, acs Medical Records Medical records reviewed: Yes I reviewed the patient's medical records. Imaging Data Radiologic Study: Attestation: I personally reviewed and interpreted this imaging study as follows: Imaging: CT Scan Radiologist's impression: IMPRESSION: 1. No evidence of pulmonary embolus to the segmental level. 2. No aneurysm of the aorta. 3. No dissection of the aorta Lab Data Lab results reviewed: Yes I reviewed the patient's lab results. ECG Data Attestation: I personally reviewed and interpreted this ECG (s) as follows: Prior ECG tracings: not available for review Interpretation: sinus tachycardia, rate of 120, pr 135, qtc 464 HPI General Mode of arrival: ambulatory . Date/Time Provider Initiated Documentation: 02/14/20 09:03 . Limitations to Documentation: no limitations . Information obtained by: patient . History of Present Illness 59 year old M presents to the emergency department with the chief complaint of shortness of breath, described as moderate, Patient started experiencing this day(s) (2) and it has been constant. No relieving factors improve symptom(s), No exacerbating factors reported . Patient did receive the following treatments prior to arrival, none Related Data Home Medications Medication Instructions Recorded Confirmed albuterol sulfate 2 puff INHALATION PRN PRN 12/02/19 02/14/20 fluticasone propion-salmeterol 1 ea INHALATION DAILY 12/02/19 02/14/20 [Advair Diskus] lorazepam See Rx Instructions .ROUTE 12/22/19 02/14/20 .COMPLEX PRN #12 tab albuterol sulfate 2 puff INHALATION Q6H PRN #18 g 02/14/20 lorazepam 1 mg PO TID PRN #14 tab 02/14/20 sertraline [Zoloft] 50 mg PO DAILY 02/14/20 02/14/20 Previous Rx's Medication Instructions Recorded lorazepam See Rx Instructions .ROUTE 12/22/19 .COMPLEX PRN #12 tab albuterol sulfate 2 puff INHALATION Q6H PRN #18 g 02/14/20 lorazepam 1 mg PO TID PRN #14 tab 02/14/20 Allergies Allergy/AdvReac Type Severity Reaction Status Date / Time animal dander AdvReac Intermediate asthma Unverified 02/14/20 09:12 pollen extracts AdvReac Intermediate asthma Unverified 02/14/20 09:12 General Stated Complaint: RespSymp LEE: 3 Review of Systems All systems reviewed & are unremarkable except as noted in HPI and below Constitutional Constitutional: Denies weakness ENT Ears, Nose, Mouth, and Throat: Denies change in voice Gastrointestinal Gastrointestinal: Denies abdominal pain, Denies nausea and Denies vomiting Musculoskeletal Musculoskeletal: Denies joint swelling Integumentary/Breasts Skin/Breast: Denies rash Neurologic Neurologic: Denies weakness Psychiatric Psychiatric: Denies depression [facility] Medical History (Updated 02/14/20 @ 11:54 by Alfonzo Giordano MD) Hypertension Social History Smoking/Tobacco Use Status: Former Tobacco Use Smoking risk assessment performed?: Yes Alcohol Intake: current Alcohol Intake frequency: a few times a week Alcohol type: hard liquor Drug use: Never Substance use type: does not use Details: has not smoked in years (last smoked a couple weeks ago) currently abstaining from alcohol (has been drinking recently) no substance use in 10 years Do you feel safe at home: Yes Do you feel safe in your relationship?: Yes Exam Const General: no acute distress Orientation: alert HENMT Head: normal to inspection Ears: external ears normal General nose exam: external nose normal Mouth: moist mucous membranes Eyes General: appearance normal, both eyes and all related structures Neck Neck: normal visual inspection Resp Effort & Inspection: normal respiratory effort and able to speak in complete sentences Cardio Rate: tachycardic Skin General skin exam: no rashes or lesions noted Neuro General: patient alert and patient oriented x3 Extrem General: normal to inspection Psych Mental Status: mental status grossly normal Course Vital Signs Vital signs: Vital Signs Temperature 36.5 C 02/14/20 09:07 Pulse 132 H 02/14/20 09:07 Respiratory Rate 20 02/14/20 09:07 Blood Pressure 166/111 H 02/14/20 09:07 Pulse Oximetry 97 02/14/20 09:07 Temperature 36.5 C 02/14/20 09:07 Temperature Source Temporal Artery Scan 02/14/20 09:07 Pulse 122 H 02/14/20 09:16 Pulse 124 H 02/14/20 09:16 Respiratory Rate 17 02/14/20 09:16 Respiratory Effort 02/14/20 09:14 Respiratory Depth Normal 02/14/20 09:14 Blood Pressure 166/139 H 02/14/20 09:16 Blood Pressure Mean 145 02/14/20 09:16 Blood Pressure Position Sitting 02/14/20 09:07 Pulse Oximetry 96 02/14/20 09:16 Oxygen Delivery Method Room Air 02/14/20 09:07 Oxygen Flow Rate 0 02/14/20 09:07
[2020-02-14 09:38] LABS: BE (Venous) 0 mmol/L (-2-3); HCO3 (Venous) 23 mmol/L (23-28); O2 Sat (Venous) 94 %; TCO2 (Venous) 19 mmol/L (24-29); pCO2 (Venous) 29 mmHg (41-51); pH (Venous) 7.51 (7.31-7.41); pO2 (Venous) 65 mmHg
[2020-02-14] MEDS: Dexamethasone 10 MG/ML VIAL IVP (09:38)
[2020-02-14] MEDS: LORazepam 2 MG/ML VIAL 1 MG IVP ×2 (09:38→10:47)
[2020-02-14 09:39] LABS: Abs Immature Grans 0.03 10^3/uL (0.0-0.06); Absolute Basophil Count 0.05 10^3/uL (0.0-0.2); Absolute Eosinophil Count 0.06 10^3/uL (0.0-0.7); Absolute Lymphocyte Count 0.84 10^3/uL (1.2-3.4); Absolute Monocyte Count 0.63 10^3/uL (0.1-0.8); Absolute Neutrophil Count 8.93 10^3/uL (1.2-6.7); Basophils % 0.5; Eosinophils % 0.6; HCT 44.4 % (40.0-50.0); HGB 16.1 g/dL (13.5-17.5); Immature Grans % 0.3; MCH 32.6 pg (27.0-33.0); MCHC 36.3 % (32.0-36.0); MCV 89.9 fL (80-95); MPV 10.8 fL (8.0-11.0); Neutrophils % 84.6; Nucleated RBC 0 %; Platelet Count 261 10^3/uL (130-400); RBC 4.94 10^6/uL (4.36-5.78); RDW 12.2 % (11.8-14.1); RDW-SD 39.9 fL; WBC 10.54 10^3/uL (4.4-10.8)
[2020-02-14] MEDS: Albuterol/Ipratropium 3 ML UPD VIAL UPD (09:39)
[2020-02-14] MEDS: Normal Saline - Diluent 50 ML VIAL IV (09:48)
[2020-02-14] MEDS: Normal Saline Flush 10 ML SYR IVP (09:49)
[2020-02-14] MEDS: Omnipaque 350 MG/ML 100 ML BTL IJ (09:49)
[2020-02-14 09:52] LABS: INR 1.1 (0.9-1.1); PTT Activated 24.9 sec (21.0-27.5); Prothrombin Time 10.8 sec (9.3-11.0)
--- NOTE | 2020-02-14 10:23 | DI.VRAD_ITS ---
PROCEDURE INFORMATION: Exam: CT Angiography Chest With Contrast Exam date and time: 02/14/2020 9:20 AM Age: 59 years old Clinical indication: Other: Dyspnea, tachycardia, chest tightness TECHNIQUE: Imaging protocol: Computed tomographic angiography of the chest with intravenous contrast. 3D rendering (Not supervised by radiologist): MIP and/or 3D reconstructed images were created by the technologist. Contrast material: OMNIPAQUE 350; Contrast volume: 100 ml; Contrast route: INTRAVENOUS (IV); COMPARISON: CR XR PORTABLE CHEST AP 12/02/2019 7:41 PM FINDINGS: Pulmonary arteries: No evidence of pulmonary embolus to the segmental level. Aorta: No aneurysm of the aorta. No dissection of the aorta. Lungs: Unremarkable. No consolidation. No masses. Pleural space: Unremarkable. No pneumothorax. No pleural effusion. Heart: Coronary artery calcifications may indicate coronary artery disease. Lymph nodes: Unremarkable. No enlarged lymph nodes. Bones/joints: Unremarkable. No acute fracture. Soft tissues: Unremarkable. IMPRESSION: 1. No evidence of pulmonary embolus to the segmental level. 2. No aneurysm of the aorta. 3. No dissection of the aorta. Dictated and Authenticated by: Anamika Pollard MD. Ordering:FREDY Mejía MD
[2020-02-14 10:44] LABS: Lactate 2.8 mmol/L (0.6-1.4)
[2020-02-14] MEDS: Normal Saline 1,000 ML 1000 ML IV (10:47)
[2020-02-14 11:02] LABS: ALT 57 U/L (16-63); AST 37 U/L (15-37); Albumin 4.2 g/dL (3.4-5.0); Alkaline Phosphatase 99 U/L (46-116); Anion Gap 12.2 mmol/L (3-11); BUN 9 mg/dL (7-18); Bilirubin, Total 1.3 mg/dL (0.2-1.0); CO2 23.8 mmol/L (21.0-32.0); CREATININE 1.17 mg/dL (0.70-1.30); Calcium 8.5 mg/dL (8.5-10.1); Chloride 101 mmol/L (98-107); Glucose 124 mg/dL (74-106); Potassium 3.4 mmol/L (3.5-5.1); Sodium 137 mmol/L (136-145); Total Protein 7.4 g/dL (6.4-8.2); Troponin I < 0.05 ng/mL (<0.06)
[2020-02-14 11:15] LABS: ETHANOL BLOOD < 3.0 mg/dL (<3)
[2020-02-14 23:51] LABS: COVID-19 RT-PCR UVMMC Result Negative (Negative)
--- NOTE | 2020-02-15 08:53 | NUR.NOTE ---
Nursing Note: Ivan Escobedo Jr's mother notified of Negative Covid--she states he has no working phone/she is on his contact list--Verbalizes understanding and that she will contact him with the result.
== END 2020-02-14 12:15 | disposition home or self-care (01) ==
PROVIDERS: Emergency Provider Emergency Medicine; PCP Physician Assistant
DX: R06.02 Shortness of breath (principal); R07.89 Other chest pain; I10 Essential (primary) hypertension; Z03.818 Encounter for observation for suspected exposure to other biological agents ruled out
CPT/HCPCS: 36410; 36415; 71275; 80053; 82805; 87040; 93005; 94640; 96361; 96374; 96375; 96376; 99285; U0003; 80320; 83605; 84484; 85025; 85610; 85730; 93010; J1100; J2060; J3490; J7620

== ENCOUNTER 2020-04-05 17:17 | Outpatient (REF) | payer MEDICAID, SELFPAY ==
[2020-04-07 13:15] LABS: COVID-19 RT-PCR UVMMC Result Negative (Negative)
== END 2020-04-05 17:37 ==
LOC: NCHCN 17:17
PROVIDERS: PCP Physician Assistant; Visit Provider Physician Assistant
DX: Z20.822 Contact with and (suspected) exposure to COVID-19 (principal)
CPT/HCPCS: U0003

== ENCOUNTER 2020-05-25 14:52 | Emergency (ER) | payer MEDICAID, SELFPAY ==
[2020-05-25] VITALS (15 sets, daily range): BP systolic 119–157; BP diastolic 77–88; PULSE 72–95; RESP 10–14; TEMP 37.1; O2SAT 93–99
--- NOTE | 2020-05-25 15:00 | DI.CT_ITS ---
EXAM: CT HEAD CERVICAL SPINE WO CLINICAL HISTORY: Trauma, DOWNEY, Neck pain. TECHNIQUE: Imaging Protocol: Axial computed tomography images with coronal and sagittal reformatted images were created and reviewed COMPARISON: No exams were available for comparison FINDINGS: BRAIN: There are no skull fractures. Some mucosal thickening fluid is noted in the sphenoid sinuses and fro ntal and maxillary sinuses as well as ethmoidal air cells. Frontal sinuses are clear. There is no evidence of intracranial hemorrhage, mass effect, or shift of midline structures. There are no extra-axial fluid collections. The ventricles are not enlarged or shifted and there is no blo od within the ventricular system nor within the basal cisterns. Ossification in the falx is incidentally noted. Also noted is calcification in the right vertebral a rtery at the skull base. CERVICAL SPINE: There is no evidence of fracture nor traumatic listhesis. Multilevel chronic degenerative disc disea se. Also multilevel facet arthropathy. No osseous lesions. IMPRESSION: No acute intracranial findings on this noninfused CT scan of the brain.Calcification right vertebral arteries incidentally No evidence of cervical spine fracture, malalignment, nor acute compromise of the cervical spinal can al. Multilevel degenerative changes in the cervical spine noted. RADIATION DOSE DELIVERED: 2,152.94mGy.cm Total DLP DATA REPOSITORY: All CT scans at this facility are submitted to the National Radiology Data Registry (NRDR) Dose Index Registry (DIR) with the [employer] (ACR). RADIATION OPTIMIZATION: All CT scans at this facility use at least one of these dose optimization te chniques: automated exposure control; mA and/or kV adjustment per patient size (includes targeted exa ms where dose is matched to clinical indication); or iterative reconstruction.
--- NOTE | 2020-05-25 15:00 | RT.EKG_ITS ---
APPROVED REPORT Exam: Resting ECG Patient Location: E HR:79 bpm ECG Measurements Heart Rate 79 AXIS OR 151 P 69 QRSd 98 QRS -58 QT 392 T 31 QTc 448 Conclusion Sinus rhythm. Inferior Q >35mS, II III aVF
--- NOTE | 2020-05-25 15:12 | ED.GENADUL_ITS ---
Discharge Plan Disposition Patient Disposition: HOME Condition: Stable Discharge Details Clinical Impression: Trauma, Separation of left acromioclavicular joint Primary Care Provider: Farzana Euceda ED Provider: Vane Benton Home Meds and New Rx's Prescriptions: New oxycodone 5 mg capsule 5 mg PO BID PRN (Reason: pain) Qty: 4 RF: 0 No Action lorazepam 2 mg tablet See Rx Instructions .ROUTE .COMPLEX PRNQty: 12 RF: 0 sertraline [Zoloft] 50 mg Tablet 50 mg PO DAILY RF: 0 albuterol sulfate 90 mcg/actuation HFA aerosol inhaler 2 puff inhalation Q6H PRNQty: 18 RF: 0 lorazepam 1 mg tablet 1 mg PO TID PRN (Reason: anxiety) Qty: 14 RF: 0 albuterol sulfate 90 mcg/actuation Hfa Aerosol Inhaler 2 puff INHALATION PRN PRNRF: 0 fluticasone propion-salmeterol [Advair Diskus] 250-50 mcg/dose Blister With Device 1 ea INHALATION DAILY RF: 0 Discharge Instructions Instructions: Acromioclavicular Separation (ED), Head Injury (ED) Additional Instructions: Please follow-up with orthopedics at [facility] within 1 week ice every 20 minutes for 3 to 4 days. Wear sling for immobilization. You may start gen tle range of motion to your shoulder when pain have subsided. Follow up with primary care provider in 3-5 days. Return to ED sooner if any worsening pain, shortness of breath, chest pain worsening neck pain or feeling that anything is unstable Or concerns. Increase oral fluids. Please take Tylenol or Ibuprofen with food every 4-6 hours as needed for pain and swelling. Take oxycodone as directed with food no operating heavy machinery or driving while on this medication. Referrals: Ricky Castro MD [ [facility] STAFF PHYSICIAN] - 1 week Discharge Data Discharge Date/Time-TO BE ENTERED AT DEPARTURE: 05/25/20 18:05 Medical Decision Making Patient is complaining of neck and back pain left shoulder pain. Patient undressed, no ecchymosis no bruising or contusions noted to his chest or abdomen he is complaining of right hip pain. He keeps stating he feels like he is going to pass out vital signs are stable at this time. Admit orders are in place. Patient was placed in a c-collar. C-spine precautions maintained. Imaging protocol: Diagnostic computed tomography of the chest with contrast. ; COMPARISON: No relevant prior studies available. FINDINGS: Lungs: Mild biapical pleuroparenchymal scarring. Posterior bilateral dependent atelectasis. No pulmonary contusion or consolidation. No pulmonary nodule. Pleural spaces: No pneumothorax or pleural effusion. Heart: [id number] coronary artery calcifications. No pericardial effusion. Mediastinal space: No retrosternal hematoma. Mild distal esophageal wall thickening but this appearance is likely chronic. Aorta: Unremarkable. No aortic aneurysm. Lymph nodes: Unremarkable. No enlarged lymph nodes. Bones/joints: Small volume of blood around the left acromioclavicular joint space. No rib fracture. No dislocation at the left glenohumeral joint. No compression deformity of the thoracic spine. Soft tissues: Unremarkable. IMPRESSION: 1. Blood around the left acromioclavicular joint space suggestive of AC joint injury. No fracture around the left shoulder or left glenohumeral dislocation. 2. No acute injury within the chest. No rib fracture. PROCEDURE INFORMATION: Exam: CT Abdomen And Pelvis With Contrast Exam date and time: 05/25/2020 4:37 PM TECHNIQUE: Imaging protocol: Computed tomography of the abdomen and pelvis with contrast. Contrast material: [id number]; COMPARISON: No relevant prior studies available. FINDINGS: Liver: No hepatic laceration or perihepatic hematoma. Gallbladder and bile ducts: Normal. No calcified stones. No ductal dilation. Pancreas: Normal. No ductal dilation. Spleen: No splenic laceration or perisplenic hematoma. Adrenal glands: Normal. No mass. Kidneys and ureters: Normal. No hydronephrosis. Stomach and bowel: Unremarkable. No obstruction. No mucosal thickening. Appendix: Postoperative changes of appendectomy. Intraperitoneal space: No intra-abdominal free air or free fluid. Vasculature: Retroaortic left renal vein. Lymph nodes: Unremarkable. No enlarged lymph nodes. Urinary bladder: Unremarkable as visualized. Reproductive: Prostate gland is mildly enlarged measuring 5.4 cm in transverse dimension. Bones/joints: Right total hip arthroplasty. No acute injury to the osseous structures within the abdomen and pelvis. Soft tissues: Unremarkable. IMPRESSION: 1. No acute solid or hollow viscus injury in the abdomen or pelvis. 2. No acute osseous injury in the abdomen or pelvis. Right total hip arthroplasty. Thank you for allowing us to participate in the care of your patient. Dictated and Authenticated by: Faustina Chávez MD COMPARISON: No relevant prior studies available. FINDINGS: Brain: No intra or extra axial bleed. No edema or mass effect. The central perez structures and cortical ribbon are maintained. Cerebral ventricles: No hydrocephalus. Basal cisterns are patent. Bones/joints: No significant bony abnormality. No fracture. Paranasal sinuses: There is mild mucosal thickening within bilateral maxillary sinuses. There is minimal mucosal thickening in the sphenoid sinus. There is opacification of several ethmoid air cells. Mastoid air cells: There is a small right mastoid effusion. Orbital cavity: Unremarkable. Soft tissues: Unremarkable. IMPRESSION: No intracerebral bleed. PROCEDURE INFORMATION: Exam: CT Cervical Spine Without Contrast Age: 59 years old Clinical indication: Injury or trauma; Other: Ski; Fracture, traumatic; Concussion/head injury TECHNIQUE: Imaging protocol: Computed tomography images of the cervical spine without con trast. COMPARISON: No relevant prior studies available. FINDINGS: Bones/joints: There is a slight cervical levoscoliosis. No acute fracture. No significant subluxation. Discs/Spinal canal/Neural foramina: There is multilevel uncovertebral spondylosis with associated mild foraminal narrowing. There is prominent facet arthropathy on the right at C4-C5 and moderate central canal narrowing at this level. Epidural space: No gross epidural hemorrhage. Prevertebral Space: No prevertebral soft tissue swelling. Lungs: No apical pneumothorax. Soft tissues: Unremarkable. IMPRESSION: No acute findings. Imaging protocol: XR Left shoulder. Views: 2 or more views. COMPARISON: No relevant prior studies available. FINDINGS: Bones/joints: Acute left acromioclavicular joint space separation with elevation of the distal left clavicle from the acromion process by roughly 1.4 cm. Adjacent soft tissue swelling. No left glenohumeral joint space dislocation. No acute fracture around the left shoulder. Lungs: The visualized left lung is clear. Soft tissues: See Bones/joints finding. IMPRESSION: Left AC joint injury. No other injury in the left shoulder. Thank you for allowing us to participate in the care of your patient 1730: Spoke with Dr. Castro he recommends a sling ice pack gentle range of motion and follow-up with Ortho clinic in 1 week. Discussed results with patient who verbalized understanding. He is stating that his pain is a 7 out of 10 to his left shoulder. Plan to give oral pain medication. Discussed home care. Discussed strict return instructions. Patient is ambulatory prior to discharge. he did have a ride home. This text was generated using [email or web address] dictation system, please disregard any oddities of phrase or misspellings. HPI General Mode of arrival: ambulatory . Date/Time Provider Initiated Documentation: 05/25/20 14:55 . Limitations to Documentation: no limitations . Information obtained by: patient . HPI Narrative: 59-year-old male presents to the ED chief complaint of left shoulder, back pain, headache status post skiing accident. Patient states that he landed on his left shoulder and then hit his head unknown LOC. He is ambulatory in department upon arrival with a sling in place. He does have obvious deformity noted to his left shoulder/clavicle. He is alert and oriented x4 upon arrival. He is complaining of back pain, neck pain frontal headache. He denies any shortness of breath lung sounds are clear to auscultation bilaterally. He denies any abdominal pain abdomen is soft nontender to palpation. He does have some hip pain which he states is at baseline for him. Related Data Home Medications Medication Instructions Recorded Confirmed albuterol sulfate 2 puff INHALATION PRN PRN 12/02/19 02/14/20 fluticasone propion-salmeterol 1 ea INHALATION DAILY 12/02/19 02/14/20 [Advair Diskus] lorazepam See Rx Instructions .ROUTE 12/22/19 02/14/20 .COMPLEX PRN #12 tab albuterol sulfate 2 puff INHALATION Q6H PRN #18 g 02/14/20 lorazepam 1 mg PO TID PRN #14 tab 02/14/20 sertraline [Zoloft] 50 mg PO DAILY 02/14/20 02/14/20 oxycodone 5 mg PO BID PRN #4 cap 05/25/20 Previous Rx's Medication Instructions Recorded lorazepam See Rx Instructions .ROUTE 12/22/19 .COMPLEX PRN #12 tab albuterol sulfate 2 puff INHALATION Q6H PRN #18 g 02/14/20 lorazepam 1 mg PO TID PRN #14 tab 02/14/20 oxycodone 5 mg PO BID PRN #4 cap 05/25/20 Allergies Allergy/AdvReac Type Severity Reaction Status Date / Time animal dander AdvReac Intermediate asthma Unverified 02/14/20 09:12 pollen extracts AdvReac Intermediate asthma Unverified 02/14/20 09:12 General Stated Complaint: Orthopedic LEE: 3 Review of Systems Narrative: Constitutional: Negative for weight loss, alert and oriented, well groomed, normal body habitus, appears uncomfortable. HEENT: Denies blurry vision, nasal discharge, sore throat, trouble swallowing. Positive headache, neck pain, left shoulder pain. Possible loss of consciousness. Chest: Denies chest pain, palpitations, irregular rhythm, hypertension. Respiratory: Denies Shortness of breath, cough, hemoptysis. GI: Denies abdominal pain, nausea, vomiting, diarrhea, constipation. : Denies dysuria, hematuria, flank pain, rectal bleeding. Musculoskeletal: Left shoulder swelling, distal radial pulses intact, midline C- spine tenderness with palpation. Right tenderness with palpation history of hip replacement. Pelvis feels stable. No abrasion, no swelling. Neuro: Denies dizziness, blurry vision, weakness, syncope, or facial numbness. Hematologic: Denies easy bruising, intolerance to heat or cold, hair loss. All systems reviewed & are unremarkable except as noted in HPI and below PFSH Medical History (Updated 05/25/20 @ 17:44 by Vane Benton) Hypertension Social History Smoking/Tobacco Use Status: Former Tobacco Use Smoking risk assessment performed?: Yes Alcohol Intake: former Drug use: Never Substance use type: does not use Details: has not smoked in years (last smoked a couple weeks ago) currently abstaining from alcohol (has been drinking recently) no substance use in 10 years Do you feel safe at home: Yes Do you feel safe in your relationship?: Yes Exam Narrative Exam Narrative: Constitutional: Alert and oriented x3. Appears stated age. Normal body habitus. Head: Normocephalic, no trauma. Eyes: Pupils PERRLA, Red reflex noted, EOM's intact. Eyelids symmetrical without lesions, discharge, or swelling. ENT: Bilateral TM's WNL, External ear normal to inspection, no mastoid TTP, swelling, or erythema, Nasal turbinates WNL, no nasal discharge. Normal dentition, Posterior pharynx WNL, no exudate. Chest: RRR, Normal S1, S2, distal pulses intact. Resp: Lungs clear to auscultation bilaterally, no wheezes, rales, or rhonchi. Abdomen: Soft, nondistended nontender to palpation all 4 quadrants. No ecchymosis or bruising noted. Musculoskeletal: Normal gait, left shoulder deformity, distal radial pulse intact, left arm, no crepitus or step-off to the C-spine or T-spine, lung sounds are clear bilaterally to auscultation. Skin: No suspicious rashes or lesions. Capillary refill less than 2 sec. Neurologic: Cranial nerves II-XII intact. Alert and oriented x 3. DTR's intact. Hematologic/Lymphatic: No ecchymosis, no lymphadenopathy. Course Vital Signs Vital signs: Vital Signs Temperature 37.1 C 05/25/20 15:07 Pulse 72 05/25/20 15:07 Blood Pressure 157/87 H 05/25/20 15:07 Pulse Oximetry 99 05/25/20 15:07 Temperature 37.1 C 05/25/20 15:07 Temperature Source Temporal Artery Scan 05/25/20 15:07 Pulse 72 05/25/20 15:07 Blood Pressure 157/87 H 05/25/20 15:07 Blood Pressure Position Supine 05/25/20 15:07 Pulse Oximetry 99 05/25/20 15:07 Oxygen Delivery Method Room Air 05/25/20 15:07 Oxygen Flow Rate 0 05/25/20 15:07 Pain Level 10 05/25/20 15:07
--- NOTE | 2020-05-25 15:15 | DI.CT_ITS ---
EXAM: CT CHEST/ABD/PEL W CLINICAL HISTORY: Trauma, Right Hip pain, left shoulder deformity. TECHNIQUE: Imaging Protocol: Axial computed tomography images with coronal and sagittal reformatted images were created and reviewed CONTRAST MATERIAL: Intravenous: Omnipaque 350 Contrast volume:100 ml Oral: None COMPARISON: CT CT CHEST PE CTA from 02/14/2020 FINDINGS: CHEST: LUNGS: No evidence of lung contusion, infiltrate, pneumothorax, or pleural effusion. No incidental p ulmonary nodules. No findings in the trachea and mainstem bronchi.. MEDIASTINUM: There is no hilar nor mediastinal adenopathy. Visualized thyroid unremarkable.No evidenc e of mediastinal hematoma. CARDIAC: Heart size is normal. There is no pericardial effusion.Thoracic aorta appears unremarkable. OSSEOUS: Abnormal streaking around the left AC joint partially included in the field of view. Correl ation injury at this level recommended. Remainder of the bones of the chest appear unremarkable. No rib fractures. No sternal fracture. ABDOMEN: There is no ascites. No evidence of mesenteric nor bowel wall hematoma. LIVER: There are no focal hepatic lesions nor dilatation of intrahepatic ducts. No a patent lacerati on GALLBLADDER/BILIARY: Gallbladder surgically absent. CBD is not dilated. PANCREAS: No evidence of pancreatic mass nor dilatation of the pancreatic duct. SPLEEN: Spleen is intact. No laceration. No perisplenic fluid. No splenic lesions. Splenic size n ormal. Splenic and portal veins are patent. ADRENALS: There are no significant adrenal masses. KIDNEYS: No calculi nor hydronephrosis. No solid renal masses. No evidence of significant renal traum a. Incidentally noted is a retroaortic left renal vein. ABDOMINAL AORTA: Intact. No trauma. No aneurysm. No dissection. LYMPH NODES: There is no retroperitoneal nor paraaortic adenopathy. ABDOMINAL WALL/GI: No evidence of significant anterior abdominal wall hernia. No bowel obstruction. PELVIS: LYMPH NODES: There is no intrapelvic nor inguinal adenopathy. GI: No evidence of appendicitis.No evidence of sigmoid diverticulitis. URINARY BLADDER: No calculi nor masses evident REPRODUCTIVE: Prostate not enlarged. OSSEOUS: Right hip prosthesis. No fractures evident. No lytic osseous lesions. IMPRESSION: 1. No significant trauma sequelae in the abdomen and pelvis. 2. Abnormal streaking around the left acromioclavicular joint most probably related to injury, only p artially included in the field of view here. Recommend plain films of this area. No rib fractures. 3. No pulmonary findings. 4. No significant trauma sequelae in the abdomen and pelvis. 5. Gallbladder is surgically absent. Biliary tree is not dilated. 6. Right hip arthroplasty. No fractures. RADIATION DOSE DELIVERED: 1,596.67mGy.cm Total DLP DATA REPOSITORY: All CT scans at this facility are submitted to the National Radiology Data Registry (NRDR) Dose Index Registry (DIR) with the [employer] (ACR). RADIATION OPTIMIZATION: All CT scans at this facility use at least one of these dose optimization te chniques: automated exposure control; mA and/or kV adjustment per patient size (includes targeted exa ms where dose is matched to clinical indication); or iterative reconstruction.
[2020-05-25] MEDS: fentaNYL 100 MCG/2 ML VIAL 50 MCG IVP (15:23)
[2020-05-25] MEDS: Ondansetron 4 MG/2 ML VIAL IVP (15:23)
[2020-05-25] MEDS: Normal Saline 1,000 ML 1000 ML IV (15:40)
[2020-05-25] MEDS: HYDROmorphone 2 MG/ML VIAL 0.5 MG IVP (15:40)
[2020-05-25 16:00] LABS: Abs Immature Grans 0.04 10^3/uL (0.0-0.06); Absolute Basophil Count 0.04 10^3/uL (0.0-0.2); Absolute Lymphocyte Count 0.81 10^3/uL (1.2-3.4); Absolute Monocyte Count 0.65 10^3/uL (0.1-0.8); Basophils % 0.4; Eosinophils % 4.6; HCT 41.6 % (40.0-50.0); HGB 14.3 g/dL (13.5-17.5); Immature Grans % 0.4; Lymphocytes % 7.4; MCH 31.5 pg (27.0-33.0); MCHC 34.4 % (32.0-36.0); MCV 91.6 fL (80-95); MPV 10.9 fL (8.0-11.0); Neutrophils % 81.2; Nucleated RBC 0 %; Platelet Count 194 10^3/uL (130-400); RBC 4.54 10^6/uL (4.36-5.78); RDW-SD 40.4 fL; WBC 10.91 10^3/uL (4.4-10.8)
[2020-05-25 16:02] LABS: Absolute Neutrophil Count 8.86 10^3/uL (1.2-6.7)
[2020-05-25] MEDS: Omnipaque 350 MG/ML 100 ML BTL IJ (16:02)
[2020-05-25] MEDS: HYDROmorphone 2 MG/ML VIAL 1 MG IVP (16:03)
[2020-05-25] MEDS: Normal Saline - Diluent 50 ML VIAL IV (16:04)
[2020-05-25 16:24] LABS: ALT 30 U/L (16-63); AST 14 U/L (15-37); Albumin 3.9 g/dL (3.4-5.0); Alkaline Phosphatase 78 U/L (46-116); Anion Gap 10.7 mmol/L (3-11); BUN 13 mg/dL (7-18); Bilirubin, Total 0.5 mg/dL (0.2-1.0); CO2 23.3 mmol/L (21.0-32.0); CREATININE 1.1 mg/dL (0.70-1.30); Calcium 8.7 mg/dL (8.5-10.1); Chloride 107 mmol/L (98-107); Glucose 102 mg/dL (74-106); Lipase 112 U/L (73-393); Magnesium 1.9 mg/dL (1.8-2.4); Sodium 141 mmol/L (136-145); Total Protein 7.2 g/dL (6.4-8.2)
--- NOTE | 2020-05-25 16:51 | DI.RAD_ITS ---
EXAM: XR SHOULDER LT COMPLETE 2+V CLINICAL HISTORY: Deformity, Trauma. TECHNIQUE: 2D digital imaging was performed. COMPARISON: No exams were available for comparison FINDINGS: There is dislocation of the AC joint. The lateral aspect of the clavicle is dislocated superiorly ap proximately 1.5 cm relative to the acromial side of the joint. There are no fractures evident. No d islocation glenohumeral joint. Bone density normal. IMPRESSION: There is dislocation of the acromioclavicular joint. Sign rib DATA REPOSITORY: RADIATION DOSE DELIVERED:
--- NOTE | 2020-05-25 17:17 | DI.VRAD_ITS ---
PROCEDURE INFORMATION: Exam: CT Head Without Contrast Exam date and time: 05/25/2020 3:12 PM Age: 59 years old Clinical indication: Injury or trauma; Other: Ski; Fracture, traumatic; Concussion/head injury TECHNIQUE: Imaging protocol: Computed tomography of the head without contrast. Total images: [id number] COMPARISON: No relevant prior studies available. FINDINGS: Brain: No intra or extra axial bleed. No edema or mass effect. The central perez structures and cortical ribbon are maintained. Cerebral ventricles: No hydrocephalus. Basal cisterns are patent. Bones/joints: No significant bony abnormality. No fracture. Paranasal sinuses: There is mild mucosal thickening within bilateral maxillary sinuses. There is minimal mucosal thickening in the sphenoid sinus. There is opacification of several ethmoid air cells. Mastoid air cells: There is a small right mastoid effusion. Orbital cavity: Unremarkable. Soft tissues: Unremarkable. IMPRESSION: No intracerebral bleed. PROCEDURE INFORMATION: Exam: CT Cervical Spine Without Contrast Exam date and time: 05/25/2020 3:12 PM Age: 59 years old Clinical indication: Injury or trauma; Other: Ski; Fracture, traumatic; Concussion/head injury TECHNIQUE: Imaging protocol: Computed tomography images of the cervical spine without contrast. COMPARISON: No relevant prior studies available. FINDINGS: Bones/joints: There is a slight cervical levoscoliosis. No acute fracture. No significant subluxation. Discs/Spinal canal/Neural foramina: There is multilevel uncovertebral spondylosis with associated mild foraminal narrowing. There is prominent facet arthropathy on the right at C4-C5 and moderate central canal narrowing at this level. Epidural space: No gross epidural hemorrhage. Prevertebral Space: No prevertebral soft tissue swelling. Lungs: No apical pneumothorax. Soft tissues: Unremarkable. IMPRESSION: No acute findings. Dictated and Authenticated by: Moy Horne MD. Ordering:CARLA Cifuentes MD
--- NOTE | 2020-05-25 17:17 | DI.VRAD_ITS ---
PROCEDURE INFORMATION: Exam: CT Chest With Contrast; Diagnostic Exam date and time: 05/25/2020 4:37 PM Age: 59 years old Clinical indication: Injury or trauma; Other: Ski; Fracture, traumatic; Closed fracture; Multiple ribs; Bilateral; Injury date: Shoulder TECHNIQUE: Imaging protocol: Diagnostic computed tomography of the chest with contrast. Contrast material: [id number]; COMPARISON: No relevant prior studies available. FINDINGS: Lungs: Mild biapical pleuroparenchymal scarring. Posterior bilateral dependent atelectasis. No pulmonary contusion or consolidation. No pulmonary nodule. Pleural spaces: No pneumothorax or pleural effusion. Heart: [id number] coronary artery calcifications. No pericardial effusion. Mediastinal space: No retrosternal hematoma. Mild distal esophageal wall thickening but this appearance is likely chronic. Aorta: Unremarkable. No aortic aneurysm. Lymph nodes: Unremarkable. No enlarged lymph nodes. Bones/joints: Small volume of blood around the left acromioclavicular joint space. No rib fracture. No dislocation at the left glenohumeral joint. No compression deformity of the thoracic spine. Soft tissues: Unremarkable. IMPRESSION: 1. Blood around the left acromioclavicular joint space suggestive of AC joint injury. No fracture around the left shoulder or left glenohumeral dislocation. 2. No acute injury within the chest. No rib fracture. 3. Mild distal esophageal wall thickening which likely is chronic. Consider follow-up EGD when medically stable, and if clinically indicated. PROCEDURE INFORMATION: Exam: CT Abdomen And Pelvis With Contrast Exam date and time: 05/25/2020 4:37 PM Age: 59 years old Clinical indication: Injury or trauma; Other: Ski; Fracture, traumatic; Closed fracture; Multiple ribs; Bilateral; Injury date: Shoulder TECHNIQUE: Imaging protocol: Computed tomography of the abdomen and pelvis with contrast. Contrast material: [id number]; COMPARISON: No relevant prior studies available. FINDINGS: Liver: No hepatic laceration or perihepatic hematoma. Gallbladder and bile ducts: Normal. No calcified stones. No ductal dilation. Pancreas: Normal. No ductal dilation. Spleen: No splenic laceration or perisplenic hematoma. Adrenal glands: Normal. No mass. Kidneys and ureters: Normal. No hydronephrosis. Stomach and bowel: Unremarkable. No obstruction. No mucosal thickening. Appendix: Postoperative changes of appendectomy. Intraperitoneal space: No intra-abdominal free air or free fluid. Vasculature: Retroaortic left renal vein. Lymph nodes: Unremarkable. No enlarged lymph nodes. Urinary bladder: Unremarkable as visualized. Reproductive: Prostate gland is mildly enlarged measuring 5.4 cm in transverse dimension. Bones/joints: Right total hip arthroplasty. No acute injury to the osseous structures within the abdomen and pelvis. Soft tissues: Unremarkable. IMPRESSION: 1. No acute solid or hollow viscus injury in the abdomen or pelvis. 2. No acute osseous injury in the abdomen or pelvis. Right total hip arthroplasty. Dictated and Authenticated by: Faustina Chávez MD. Ordering:CARLA Cifuentes MD
--- NOTE | 2020-05-25 17:21 | DI.VRAD_ITS ---
PROCEDURE INFORMATION: Exam: XR Left Shoulder Exam date and time: 05/25/2020 4:50 PM Age: 59 years old Clinical indication: Injury or trauma; Fall; Blunt trauma (contusions or hematomas); Shoulder; Left TECHNIQUE: Imaging protocol: XR Left shoulder. Views: 2 or more views. COMPARISON: No relevant prior studies available. FINDINGS: Bones/joints: Acute left acromioclavicular joint space separation with elevation of the distal left clavicle from the acromion process by roughly 1.4 cm. Adjacent soft tissue swelling. No left glenohumeral joint space dislocation. No acute fracture around the left shoulder. Lungs: The visualized left lung is clear. Soft tissues: See Bones/joints finding. IMPRESSION: Left AC joint injury. No other injury in the left shoulder. Dictated and Authenticated by: Faustina Chávez MD. Ordering:CARLA Cifuentes MD
[2020-05-25] MEDS: oxyCODONE 5 MG TAB PO (17:55)
== END 2020-05-25 18:05 | disposition home or self-care (01) ==
LOC: ER 17:56
PROVIDERS: Emergency Provider Registered Nurse Emergency; PCP Physician Assistant
DX: S43.52XA Sprain of left acromioclavicular joint, initial encounter (principal); M54.5 Low back pain; M54.2 Cervicalgia; R51.9 Headache, unspecified; V00.321A Fall from snow-skis, initial encounter; Y93.23 Activity, snow (alpine) (downhill) skiing, snowboarding, sledding, tobogganing and snow tubing
CPT/HCPCS: 36415; 74177; 80053; 83690; 93005; 96361; 96374; 96375; 99285; 70450; 71260; 72125; 73030; 83735; 85025; 93010; J2405; J3010; J3490

== ENCOUNTER 2020-06-01 16:21 | Outpatient (CLI) | payer MEDICAID, SELFPAY ==
--- NOTE | 2020-06-01 14:00 | DI.RAD_ITS ---
EXAM: XR CLAVICLE LT CLINICAL HISTORY: left clavicle pain. TECHNIQUE: 2D digital imaging was performed. COMPARISON: Shoulder x-rays 05/25/2020 FINDINGS: There is dislocation of the acromioclavicular joint. No fractures evident. The distal aspect of the clavicle is located 2.5 cm above the level of the acromion height. No osseous lesions. IMPRESSION: Dislocated acromioclavicular joint. No fracture evident. DATA REPOSITORY: RADIATION DOSE DELIVERED:
== END 2020-06-01 16:22 | disposition home or self-care (01) ==
LOC: DIORS 16:21
PROVIDERS: PCP Physician Assistant; Visit Provider Student in an Organized Health Care Education/Training Program
DX: S43.102A Unspecified dislocation of left acromioclavicular joint, initial encounter (principal); M89.8X1 Other specified disorders of bone, shoulder
CPT/HCPCS: 73000

== ENCOUNTER 2020-06-17 03:50 | Outpatient (CLI) | payer MEDICAID, SELFPAY ==
--- NOTE | 2020-06-17 07:30 | DI.MRI_ITS ---
EXAM: MR UPPER JOINT LT WO CLINICAL HISTORY: Preop planning, shoulder separation,S43.102A. TECHNIQUE: Multiplanar multisequence MRI was performed. COMPARISON: CR,XR XR SHOULDER LT COMPLETE 2+V from 05/25/2020 FINDINGS: BONES: There is mild edema seen in the distal clavicle but no discrete fracture. JOINTS: There is edema seen around the acromioclavicular joint with disruption of the ligaments and a superior location of the distal clavicle relative to the acromion consistent with AC joint separatio n. The glenohumeral joint is normal. TENDONS: Supraspinatus: Unremarkable. Infraspinatus: There is mild increased signal seen in the infraspinatus tendon anteriorly at its inse rtion site onto the greater tuberosity suggesting tendinosis and/or partial tear. Subscapularis: Unremarkable. [place]: Unremarkable. Biceps and [place]: Unremarkable. MUSCLES: Unremarkable. GLENOID LABRUM: Unremarkable on this noncontrast examination. SOFT TISSUES: There is edema in the soft tissue surrounding the acromioclavicular joint. LIGAMENTS: Please see the above discussion. There is disruption of the coracoclavicular ligament christopher picious for tear. OTHER: Subacromial and subdeltoid bursae are unremarkable. IMPRESSION: 1. Findings consistent with an acromioclavicular joint separation. 2. Findings suspicious for cortical clavicular ligament tear. 3. Tendinosis and/or partial tear involving the infraspinatus tendon. 4. Contusion involving the distal clavicle. DATA REPOSITORY:
== END 2020-06-17 04:10 ==
PROVIDERS: PCP Physician Assistant; Visit Provider Student in an Organized Health Care Education/Training Program
DX: S43.102A Unspecified dislocation of left acromioclavicular joint, initial encounter (principal)
CPT/HCPCS: 73221

== ENCOUNTER 2020-08-12 08:08 | Inpatient (IN) | payer MEDICAID, SELFPAY ==
[2020-08-12] VITALS (88 sets, daily range): BP systolic 125–164; BP diastolic 69–101; PULSE 77–109; RESP 1–20; TEMP 36.1–36.6; O2SAT 90–99
--- NOTE | 2020-08-12 08:30 | DI.RAD_ITS ---
Exam(s) XR LUMBAR SPINE COMPLETE EXAM: XR LUMBAR SPINE COMPLETE CLINICAL HISTORY: lumbar pain. TECHNIQUE: 2D digital imaging was performed. COMPARISON: No exams were available for comparison FINDINGS: There is normal alignment of the lumbar spine. Mild degenerative changes are present. No acute frac ture or dislocation. Atherosclerosis. IMPRESSION: No acute fracture or subluxation in the lumbar spine. DATA REPOSITORY: RADIATION DOSE DELIVERED:
--- NOTE | 2020-08-12 08:30 | RT.EKG_ITS ---
APPROVED REPORT Exam: Resting ECG Reason for Exam: weakness Patient Location: E HR:95 bpm ECG Measurements Heart Rate [address] 146 P 60 QRSd 88 QRS -60 QT 365 T 49 QTc 458 Conclusion Sinus rhythm...normal P axis, V-rate 60- 99 Inferior infarct, old...Q >35mS, II III aVF
--- NOTE | 2020-08-12 08:35 | DI.RAD_ITS ---
Exam(s) XR CHEST 1V IN DI DEPT EXAM: XR CHEST 1V IN DI DEPT CLINICAL HISTORY: fall, asthma hx TECHNIQUE: 2D digital imaging was performed. COMPARISON: No exams were available for comparison FINDINGS: MEDIASTINUM: Normal. HEART: Normal. PULMONARY VASCULATURE: Normal. LUNGS: Clear. PLEURAL SPACE: No pleural effusion or pneumothorax. BONE:Within normal limits for the patient's age. OTHER FINDINGS:Normal. IMPRESSION: No acute pulmonary findings. DATA REPOSITORY: RADIATION DOSE DELIVERED:
--- NOTE | 2020-08-12 08:46 | ED.GENADUL_ITS ---
Discharge Plan Discharge Details Chief Complaint: PsychEval Admit Date/Time: 08/12/20 13:14 Admit Provider: Sheri Schuler Attending Provider: Sheri Schuler Primary Care Provider: Farzana Euceda ED Provider: Yarely Davenport Medical Decision Making Patient is alert, oriented, of decisional capacity, he does report suicidal ideation, he is agreeable to voluntary hospitalization given his depression and suicidal ideation He denies have alcoholic ketoacidosis, he was given 1 L of normal saline and thiamine, he was also given D5 normal saline to correct his ketoacidosis He is also able to eat and drink, his CIWA score has ranged between 11 and 12, he is tolerating Ativan well, I did not order phenobarb initially as patient's blood alcohol was still 120 He has no prior history of DTs or alcohol withdrawal seizures Given that he will need psychiatric admission, he will be admitted for IV hydration and alcoholic ketoacidosis pending transfer to mental health facility [place], mental health counselors evaluate the patient and patient will be voluntary status, however should he attempt to leave, he will likely be placed on involuntary status although he has been calm and cooperative throughout this encounter CT brain does not show acute pathology per radiology interpretation of my review, cervical spine negative per radiology interpretation of my review, Differential Diagnosis Differential Diagnosis: Alcoholic ketoacidosis, suicidal ideation, electrolyte abnormality, depress Medical Records Medical records reviewed: Yes I reviewed the patient's medical records. Lab Data Lab results reviewed: Yes I reviewed the patient's lab results. HPI General Mode of arrival: ambulatory . Date/Time Provider Initiated Documentation: 08/12/20 08:14 . Limitations to Documentation: no limitations . Information obtained by: patient . HPI Narrative: This 59-year-old gentleman with history of alcohol open and hypertension presents with reports of worsening depression, anxiety and intermittent suicidal thoughts without plan. Patient safe that he has been consuming alcohol for the past week, approximately 1 L of vodka daily. He has a history of alcoholism but was sober from March 2020 until last week. Secondary to family events, he has become progressively more depressed and started drinking again. He has not had any alcohol since 4:00 yesterday. He does state that he took a fall on Saturday and hit his head and is having quite a bit of pain. He also has pain to his lumbar spine and his right hip reportedly. He denies any additional illicit drug use. He also states he has asthma for which he uses an inhaler regularly. He did use his inhaler last evening. He denies current shortness of breath. He denies any chest pain. He denies any fever or chills. He is nauseous without vomiting today. He denies any urinary complaints. He denies any abdominal pain or flank pain. He denies any history of anticoagulation. Related Data Home Medications Medication Instructions Recorded Confirmed albuterol sulfate 2 puff INHALATION PRN PRN 12/02/19 08/12/20 fluticasone propion-salmeterol 2 inh INHALATION BID 12/02/19 08/12/20 [Advair Diskus] amlodipine 10 mg tablet 10 mg PO DAILY 06/01/20 08/12/20 sertraline 50 mg tablet 100 mg PO DAILY tab 06/28/20 08/12/20 Allergies Allergy/AdvReac Type Severity Reaction Status Date / Time animal dander AdvReac Intermediate asthma Unverified 08/12/20 08:20 pollen extracts AdvReac Intermediate asthma Unverified 08/12/20 08:20 General Stated Complaint: PsychEval LEE: 2 Review of Systems Narrative: Review of systems obtained x7 aside from where indicated in HPI [facility] Medical History (Updated 08/09/20 @ 14:55 by Ricky Castro MD) Hypertension Trauma Social History Smoking/Tobacco Use Status: Former Tobacco Use Smoking risk assessment performed?: Yes Alcohol Intake: former Drug use: Never Substance use type: does not use Details: has not smoked in years (last smoked a couple weeks ago) currently abstaining from alcohol (has been drinking recently) no substance use in 10 years Current gender identity: male Do you feel safe at home: Yes Do you feel safe in your relationship?: Yes Exam Const General: cooperative Orientation: oriented x3 HENMT Other: Moist mucous membranes Eyes Pupils: PERRL Other: No hemotympanum, abrasion noted to forehead Neck Other: No midline tenderness Chest Chest: normal inspection of the chest Resp Effort & Inspection: normal respiratory effort Auscultation: clear to auscultation bilaterally Cardio Rate: regular rate Rhythm: regular rhythm GI Inspection: normal to inspection Other: non-tender abdominal exam, no cva tenderness Neuro General: patient alert and patient oriented x3 Cranial Nerves: CN's II-XI intact bilaterally Cognition: normal cognition Sensory Exam: no sensory deficits noted Other: GCS 15 Extrem Other: Tenderness with palpation to right hip, no visible sign of trauma, tenderness with palpation to R side, no visible sign of trauma Neurovascularly intact bilateral lower and upper extremities Course Vital Signs Vital signs: Vital Signs Temperature 36.6 C 08/12/20 08:15 Pulse 95 H 08/12/20 08:15 Respiratory Rate 18 08/12/20 08:15 Blood Pressure 144/101 H 08/12/20 08:15 Pulse Oximetry 97 08/12/20 08:15 Temperature 36.6 C 08/12/20 08:15 Temperature Source Temporal Artery Scan 08/12/20 08:15 Pulse 95 H 08/12/20 08:15 Respiratory Rate 18 08/12/20 08:15 Respiratory Effort Non-Labored 08/12/20 08:22 Blood Pressure 144/101 H 08/12/20 08:15 Blood Pressure Position Sitting 08/12/20 08:15 Pulse Oximetry 97 08/12/20 08:15 Oxygen Delivery Method Room Air 08/12/20 08:15 Oxygen Flow Rate 0 08/12/20 08:15
[2020-08-12 08:57] LABS: Bilirubin Negative (Negative); Blood Trace-lysed (Negative); Clarity Clear (Clear); Glucose Negative (Negative); Ketones 80 mg/dL (Negative); Leukocyte Esterase Negative (Negative); Nitrite Negative (Negative); Specific Gravity >= 1.030 (1.005-1.025); Urobilinogen 0.2 EU/dL (Up TO 0.2)
[2020-08-12] MEDS: Normal Saline 500 ML 1000 ML IV (09:09)
[2020-08-12 09:10] LABS: *AMPHETAMINES SCREEN URINE Negative (Negative); *BARBITURATES SCREEN URINE Negative (Negative); *BENZODIAZEPINES SCREEN URINE Negative (Negative); Cannabinoids THC Negative (Negative); Cocaine Screen,Urine Negative (Negative); METHADONE URINE SCREEN Negative (Negative); OPIATES URINE SCREEN Negative (Negative); Tricyclic Antidepressants Negative (Negative)
[2020-08-12 09:10] LABS: ETHANOL BLOOD 120.5 mg/dL (<3)
[2020-08-12] MEDS: Metoclopramide 10 MG/2 ML VIAL IVP (09:20)
[2020-08-12] MEDS: LORazepam 2 MG/ML VIAL 1 MG IVP (09:21)
[2020-08-12 09:22] LABS: TSH 2.19 uIU/mL (0.36-3.74)
[2020-08-12] MEDS: Acetaminophen 500 MG TAB 1000 MG PO (09:22)
[2020-08-12 09:25] LABS: Bacteria Few HPF (Negative); C & S Indicated? No/Sq. Contamination; Casts Negative LPF (Negative); Crystals Negative HPF (Negative); Epithelial Cells Many HPF (Negative); Mucus Moderate (Negative); WBC 0-2 HPF (0-5)
[2020-08-12] MEDS: Normal Saline 50 ML (09:28)
[2020-08-12] MEDS: Normal Saline 500 ML IV (09:39)
--- NOTE | 2020-08-12 09:47 | DI.CT_ITS ---
Exam(s) CT HEAD CERVICAL SPINE WO EXAM: CT HEAD CERVICAL SPINE WO CLINICAL HISTORY: fall, HI and neck pain. TECHNIQUE: Imaging Protocol: Axial computed tomography images with coronal and sagittal reformatted images were created and reviewed COMPARISON: CT CT HEAD CERVICAL SPINE WO from 05/25/2020 FINDINGS: CT Head: Ventricles and Extra axial spaces: Normal in size and morphology for the patient's age. Hemorrhage: None. Cerebral parenchyma: Normal. Midline shift: None. Brainstem/Cerebellum: Normal. Calvarium: Normal. Visualized Paranasal sinuses/Mastoids: There is mild mucosal thickening in the maxillary sinuses, sph enoid sinuses and ethmoid air cells. The remaining visualized paranasal sinuses are clear. Mastoid air cells are clear. Soft Tissues: Unremarkable. CT Cervical Spine: Bones: No acute fracture or subluxation. Multilevel degenerative changes are present throughout the c ervical spine. Soft Tissues: Unremarkable. Thyroid gland: Unremarkable. Lung Apices: Clear. IMPRESSION: 1. No acute intracranial process. 2. No acute fracture or subluxation in the cervical spine. 3. Results of this exam have been verbally communicated with provider. RADIATION DOSE DELIVERED: 1,542.41mGy.cm Total DLP DATA REPOSITORY: All CT scans at this facility are submitted to the National Radiology Data Registry (NRDR) Dose Index Registry (DIR) with the [employer] ([employer]). RADIATION OPTIMIZATION: All CT scans at this facility use at least one of these dose optimization te chniques: automated exposure control; mA and/or kV adjustment per patient size (includes targeted exa ms where dose is matched to clinical indication); or iterative reconstruction.
--- NOTE | 2020-08-12 09:51 | DI.RAD_ITS ---
Exam(s) XR HIP RT COMPLETE AP PELVIS EXAM: XR HIP RT COMPLETE AP PELVIS CLINICAL HISTORY: right hip pain post fall. TECHNIQUE: 2D digital imaging was performed. COMPARISON: No exams were available for comparison FINDINGS: BONES: No acute fracture is present. No bony destructive lesion is seen. JOINTS: No dislocation present. The patient has a right total hip replacement which appears intact. SOFT TISSUE: Normal. IMPRESSION: No acute fracture or dislocation. DATA REPOSITORY: RADIATION DOSE DELIVERED:
[2020-08-12 09:52] LABS: Abs Immature Grans 0.01 10^3/uL (0.0-0.06); Absolute Basophil Count 0.05 10^3/uL (0.0-0.2); Absolute Eosinophil Count 0.04 10^3/uL (0.0-0.7); Absolute Lymphocyte Count 0.88 10^3/uL (1.2-3.4); Absolute Neutrophil Count 7.17 10^3/uL (1.2-6.7); Basophils % 0.6; Eosinophils % 0.5; HGB 16.6 g/dL (13.5-17.5); Immature Grans % 0.1; Lymphocytes % 10.1; MCHC 36.1 % (32.0-36.0); MCV 88.6 fL (80-95); MPV 10.2 fL (8.0-11.0); Monocytes % 6.9; Neutrophils % 81.8; Nucleated RBC 0 %; Platelet Count 242 10^3/uL (130-400); RBC 5.19 10^6/uL (4.36-5.78); RDW 13.8 % (11.8-14.1); RDW-SD 44.8 fL; WBC 8.75 10^3/uL (4.4-10.8)
--- NOTE | 2020-08-12 10:01 | NUR.NOTE ---
This [employer] OPER[employer] just got to room 5 for CPSO When I arrived PT is in diagnostic imaging. PT does have visitor in room at this time. Nursing Note:
[2020-08-12 10:02] LABS: ALT 37 U/L (16-63); AST 36 U/L (15-37); Albumin 4.7 g/dL (3.4-5.0); Alkaline Phosphatase 108 U/L (46-116); Anion Gap 21.8 mmol/L (3-11); BUN 10 mg/dL (7-18); Bilirubin, Total 1.1 mg/dL (0.2-1.0); CO2 18.2 mmol/L (21.0-32.0); CREATININE 1.1 mg/dL (0.70-1.30); Calcium 8.9 mg/dL (8.5-10.1); Chloride 101 mmol/L (98-107); Glucose 96 mg/dL (74-106); Potassium 3.9 mmol/L (3.5-5.1); Sodium 141 mmol/L (136-145); Total Protein 8.2 g/dL (6.4-8.2)
--- NOTE | 2020-08-12 10:29 | NUR.NOTE ---
PT back from diagnostic imaging. Nursing Note:
--- NOTE | 2020-08-12 10:43 | NUR.NOTE ---
Pt with mental health at this time. Nursing Note:
[2020-08-12] MEDS: DEXTROSE 5%-0.9% SALINE 1,000 ML 150 ML IV ×2 (11:51→23:56)
[2020-08-12] MEDS: THIAMINE 100 MG in Normal Saline 100 ML 200 MG IVPB (11:51)
[2020-08-12 11:52] LABS: BE (Venous) -3 mmol/L (-2-3); HCO3 (Venous) 20 mmol/L (23-28); O2 Sat (Venous) 96 %; TCO2 (Venous) 18 mmol/L (24-29); pCO2 (Venous) 28 mmHg (41-51); pH (Venous) 7.47 (7.31-7.41); pO2 (Venous) 74 mmHg
[2020-08-12] MEDS: LORazepam 1 MG TAB PO/SL ×2 (13:31→21:09)
--- NOTE | 2020-08-12 15:24 | HPE_ITS ---
Date of service: 08/12/20 Time of Service: 15:25 Assessment and Plan Assessment and plan (1) Alcohol withdrawal: Status: Acute Assessment and plan: While alcohol is still in his system. I am concerned that this patient has potential for severe withdrawal. Monitor in the ICU with CIWA and prn ativan. Consider phenobarbital if noticed to be escalating. Provide Vitamins. (2) Asthma exacerbation: Status: Acute Assessment and plan: Check procalcitonin. R/o COVID-19. Treat with prednisone, nebs, symbicort. (3) Suicidal ideation: Status: Acute Assessment and plan: In setting of substance use. Plan for a voluntary psychiatric admission when medically cleared. (4) Alcoholic ketoacidosis: Status: Acute Assessment and plan: Provide IVF. 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 Outpatient follow up with orthopedic surgery. He was a no-show there for his last appointment but has otherwise been followed by Dr Castro who was considering surgical intervention if the patient did not improve after 6 wks of PT. Qualifiers: Encounter type: subsequent encounter Qualified Code(s): S43.102D - Unspecified dislocation of left acromioclavicular joint, subsequent encounter (6) Alcohol abuse: Status: Chronic Assessment and plan: Care Management to discuss options for sobriety programs in the community, and this should also be addressed at the psychiatric facility when he goes there. (7) DVT prophylaxis: Status: Acute Assessment and plan: SC enoxaparin (8) Discharge planning issues: Status: Acute Assessment and plan: Full code - confirmed in conversation with the patient Admit to the ICU due to potential of severe alcohol withdrawal. History of Present Illness History of Present Illness Chief Complaint: Feeling hopeless, fall, alcohol withdrawal, cough and chest tightness Narrative: Mr Killian is a 59 year old male with PMHx of alcohol abuse with h/o alcohol withdrawal but not delirium or seizures, as well as h/o asthma requiring intubation in the past, hypertension, anxiety, depression, who after a long period of remission started drinking again 5 days ago and has been drinking 1 L of vodka per day. He presented to [facility] ED today c/o feeling symptoms of alcohol withdrawal (headache, shakes, nausea, dry heaving), stating that his last drink was yesterday afternoon. He states his withdrawal usually takes a couple of days. He also endorsed feeling suicidal and hopeless. He endorses the trigger to drinking and feeling this way was his ex and children getting together and him not being invited. He states that he has also been having chest tightness and nonproductive cough for last week. He always feels this way every spring and usually has to take prednisone but not antibiotics. He is fully vaccinated against COVID-19 (Pfizer, 2nd dose 6 weeks ago) and denies any contact with anyone who has confirmed or suspected COVID-19. Denies fever, endorses feeling hot, denies runny nose or sore throat. Finally, he endorses falling while intoxicated 2 days ago. He had a negative workup of this in the ED, but continues to report pain in his left shoulder - has AC joint separation diagnosed in May after a skiing accident. At this time, the patient is considered a voluntary admission from mental health stand point. Hospitalist admission was requested while awaiting a psychiatric bed and until medically cleared. The patient was showing signs of EtOH w/d in the ED and received 3 mg of ativan for a CIWA score of 12. Review of Systems All systems reviewed & are unremarkable except as noted in HPI and below PFSH Medical History (Updated 08/12/20 @ 16:16 by Sheri Schuler MD) Alcohol abuse Anxiety Asthma Depression Hypertension Separation of left acromioclavicular joint Trauma Surgical History (Updated 08/12/20 @ 15:49 by Sheri Schuler MD) S/P appendectomy S/P cholecystectomy Status post total hip replacement, right Family History (Updated 08/12/20 @ 15:49 by Sheri Schuler MD) Mother Heart disease Stroke Hypertension Breast cancer Social History (Updated 08/12/20 @ 15:50 by Sheri Schuler MD) Smoking/Tobacco Use Status: Former Tobacco Use Smoking risk assessment performed?: Yes Alcohol Intake: current Alcohol Intake frequency: 3 or more drinks per day Alcohol type: other Counseling given: Yes Counseling provided: provider counseling Drug use: Never Substance use type: does not use Details: has not smoked in years (last smoked a couple weeks ago) currently abstaining from alcohol (has been drinking recently) no substance use in 10 years Current gender identity: male Do you feel safe at home: Yes Do you feel safe in your relationship?: Yes Meds Allergies and Home Medications Allergies Allergy/AdvReac Type Severity Reaction Status Date / Time animal dander AdvReac Intermediate asthma Unverified 08/12/20 08:20 pollen extracts AdvReac Intermediate asthma Unverified 08/12/20 08:20 Home Medications Medication Instructions Recorded Confirmed Type albuterol sulfate 2 puff INHALATION PRN PRN 12/02/19 08/12/20 History fluticasone propion-salmeterol 2 inh INHALATION BID 12/02/19 08/12/20 History [Advair Diskus] amlodipine 10 mg tablet 10 mg PO DAILY 06/01/20 08/12/20 History sertraline 50 mg tablet 100 mg PO DAILY tab 06/28/20 08/12/20 History Exam Narrative Exam Narrative: General: Obese male who is coughing and appears to have a URI, AOx3, able to complete sentences, no increased work of breathing, cooperative Neurological: A&Ox3, no focal deficits, not tremulous at the time of my exam Psychiatric: Mildly anxious, flat affect Skin: Visible skin intact; sanchez HEENT: Atraumatic, normocephalic, EOMI, dry MM, clear oropharynx, no submandibular or cervical lymphadenopathy, no goiter or JVD Cardiovascular: RRR, mildly tachycardic, no m/r/g Lungs: expiratory wheezing B Gastrointestinal: soft, nontender, nondistended Genitourinary: deferred Extremities: no edema BLE's, 2+ pedal pulses B Results Imaging Additional studies: XR lumbar spine: No acute fracture or subluxation in the lumbar spine. CXR: No acute pulmonary findings. CT head/c-spine: 1. No acute intracranial process. 2. No acute fracture or subluxation in the cervical spine. XR R hip: No acute fracture or dislocation. EKG: SR, HR 95, no acute ischemia, old inferior [place] Labs Result diagrams: 08/12/20 08:48 08/12/20 08:45 Labs: Laboratory Results - last 24 hr 08/12/20 08/12/20 08/12/20 08:43 08:43 08:45 WBC RBC Hgb Hct MCV MCH MCHC RDW Plt Count MPV Immature Gran % Neutrophils % Lymphocytes % Monocytes % Eosinophils % Basophils % Nucleated RBC % Absolute Neutrophils Absolute Lymphocytes Absolute Monocytes Absolute Eosinophils Absolute Basophils VBG pH VBG pCO2 VBG pO2 VBG HCO3 VBG Total CO2 VBG O2 Saturation VBG Base Excess Sodium 141 Potassium 3.9 Chloride 101 Carbon Dioxide 18.2 L Anion Gap 21.8 H BUN 10 Creatinine 1.1 Estimated GFR/1.73 m2 >= 60.00 Glucose 96 Calcium 8.9 Magnesium Total Bilirubin 1.1 H AST 36 ALT 37 Alkaline Phosphatase 108 Total Protein 8.2 Albumin 4.7 TSH Urine Color Yellow Urine Clarity Clear Urine pH 6.0 Ur Specific Viola >= 1.030 H Urine Protein 30 H Urine Ketones 80 H Urine Blood Trace-lysed H Urine Nitrite Negative Urine Bilirubin Negative Urine Urobilinogen 0.2 Ur Leukocyte Esterase Negative Urine RBC 5-10 H Urine WBC 0-2 Ur Epithelial Cells Many Urine Crystals Negative Urine Bacteria Few Urine Casts Negative Urine Mucus Moderate Ur Culture Indicated? No/sq. contamination Urine Glucose Negative Urine Opiates Screen Negative Urine Methadone Screen Negative Ur Barbiturates Screen Negative Ur Tricyclics Screen Negative Ur Amphetamines Screen Negative U Benzodiazepines Scrn Negative Urine Cocaine Screen Negative Ur THC Screen Negative Ethyl Alcohol COVID-19 Source 08/12/20 08/12/20 08/12/20 08:48 08:48 08:48 WBC 8.75 RBC 5.19 Hgb 16.6 Hct 46.0 MCV 88.6 MCH 32.0 MCHC 36.1 H RDW 13.8 Plt Count 242 MPV 10.2 Immature Gran % 0.1 Neutrophils % 81.8 Lymphocytes % 10.1 Monocytes % 6.9 Eosinophils % 0.5 Basophils % 0.6 Nucleated RBC % 0 Absolute Neutrophils 7.17 H Absolute Lymphocytes 0.88 L Absolute Monocytes 0.60 Absolute Eosinophils 0.04 Absolute Basophils 0.05 VBG pH VBG pCO2 VBG pO2 VBG HCO3 VBG Total CO2 VBG O2 Saturation VBG Base Excess Sodium Potassium Chloride Carbon Dioxide Anion Gap BUN Creatinine Estimated GFR/1.73 m2 Glucose Calcium Magnesium 2.0 Total Bilirubin AST ALT Alkaline Phosphatase Total Protein Albumin TSH 2.19 Urine Color Urine Clarity Urine pH Ur Specific [place] Urine Protein Urine Ketones Urine Blood Urine Nitrite Urine Bilirubin Urine Urobilinogen Ur Leukocyte Esterase Urine RBC Urine WBC Ur Epithelial Cells Urine Crystals Urine Bacteria Urine Casts Urine Mucus Ur Culture Indicated? Urine Glucose Urine Opiates Screen Urine Methadone Screen Ur Barbiturates Screen Ur Tricyclics Screen Ur Amphetamines Screen U Benzodiazepines Scrn Urine Cocaine Screen Ur THC Screen Ethyl Alcohol 120.5 COVID-19 Source 08/12/20 08/12/20 08/12/20 09:10 11:47 13:25 WBC RBC Hgb Hct MCV MCH MCHC RDW Plt Count MPV Immature Gran % Neutrophils % Lymphocytes % Monocytes % Eosinophils % Basophils % Nucleated RBC % Absolute Neutrophils Absolute Lymphocytes Absolute Monocytes Absolute Eosinophils Absolute Basophils VBG pH 7.47 H VBG pCO2 28 L VBG pO2 74 VBG HCO3 20 L VBG Total CO2 18 L VBG O2 Saturation 96 VBG Base Excess -3 L Sodium Potassium Chloride Carbon Dioxide Anion Gap BUN Creatinine Estimated GFR/1.73 m2 Glucose Calcium Magnesium Total Bilirubin AST ALT Alkaline Phosphatase Total Protein Albumin TSH Urine Color Cancelled Urine Clarity Cancelled Urine pH Cancelled Ur Specific [place] Cancelled Urine Protein Cancelled Urine Ketones Cancelled Urine Blood Cancelled Urine Nitrite Cancelled Urine Bilirubin Cancelled Urine Urobilinogen Cancelled Ur Leukocyte Esterase Cancelled Urine RBC Urine WBC Ur Epithelial Cells Urine Crystals Urine Bacteria Urine Casts Urine Mucus Ur Culture Indicated? Urine Glucose Cancelled Urine Opiates Screen Urine Methadone Screen Ur Barbiturates Screen Ur Tricyclics Screen Ur Amphetamines Screen U Benzodiazepines Scrn Urine Cocaine Screen Ur THC Screen Ethyl Alcohol COVID-19 Source Nasal/nares Last Vital Signs Temp 36.3 C L 08/12/20 14:50 Pulse 102 H 08/12/20 14:50 Resp 15 08/12/20 14:40 BP 163/91 H 08/12/20 14:29 Pulse Ox 94 08/12/20 14:40 COVID-19 Screening Have you, or household traveled for leisure in last 14 days?: No Had IN PERSON contact w/suspected or confirmed C-19 person: No
[2020-08-12] MEDS: Albuterol 2.5 MG/3 ML INH SOLN VIAL UPD (16:30)
[2020-08-12] MEDS: Normal Saline Flush 10 ML SYR IVP (16:32)
[2020-08-12] MEDS: methylPREDNISolone SUCC 125 MG VIAL IVP (16:33)
[2020-08-12] MEDS: Ibuprofen 800 MG TAB (16:33)
[2020-08-12] MEDS: Enoxaparin 40 MG/0.4 ML SYR SC (16:33)
--- NOTE | 2020-08-12 16:33 | RESPIRATORY ---
Pt given a peak flow pre neb and had good effort. Best of 3 is 280. Post neb best of 3 is 350.
[2020-08-12 16:47] LABS: Source Nasal/Nares
[2020-08-12 17:10] LABS: Procalcitonin < 0.1 ng/mL
[2020-08-12 17:11] LABS: COVID-19 PCR Negative (Negative)
[2020-08-12] MEDS: Albuterol/Ipratropium 3 ML UPD VIAL UPD ×2 (18:33→23:58)
--- NOTE | 2020-08-12 18:56 | PDOC.MHCN_ITS ---
Date of service: 08/12/20 Time of Service: 10:40 Mental Health Crisis Note Presenting Issue How did you arrive at the ED and why did you come: Client arrived to [facility] ER with his sister due to intoxication as well as a fall where he bruised his head. Precipitating Factors Client endorsed SI but no HI at this time. Disposition BEHAVIOR: Client presented as impulsive, withdrawn and with poor insight and judgment. Client also presented as uncooperative and manipulative as evidenced by his insistence on having his sister take her home even though she stated cannot stick to a afety plan with him. EYE CONTACT: Client maintained minimal to no eye contact MOOD: Client presented with anxious, depressed and hopeless mood. Client also disclosed he felt angry about his recent divorce and his relapse after 6 months of sobriety. AFFECT: Client presented with flat affect APPETITE: Client reported poor appetite as well as disordered eating habits. C lient reported he goes through periods of not eating anything except cheese and crackers for a prolonged amount of time. Client disclosed the longest time he had gone without food was 2 weeks. SLEEP(trouble falling/staying asleep: Client reported difficulty staying asleep. Plan Client is agreeable to going voluntarily for in-patient treatment. Client will await placement at [facility] and will need to be reassessed by [facility] if and when he decides to discharge before he is placed for treatment. Referral have been made to [facility], [facility] and [facility] [place] [facility]. They are all pending review as well as bed availability at this time. Signature Clinician's Name/Title: Khadijah Zayas / FANNY Clinician.
[2020-08-12] MEDS: Budesonide/Formoterol 160/4.5 6 GM 60 PUFF INH IH (21:10)
[2020-08-12] MEDS: Acetaminophen 325 MG TAB PO (21:30)
[2020-08-13] VITALS (42 sets, daily range): BP systolic 130–169; BP diastolic 65–87; PULSE 74–105; RESP 1–23; TEMP 36.1–36.3; O2SAT 91–97
--- NOTE | 2020-08-13 02:09 | NUR.NOTE ---
Nursing Note: At 20:15H, [facility] staff Ms Mayfield called to talk with the patient to do a telephonic screening before they accept the case. On-call case briefer Ms Daley is aware of the situation and she was informed by Ms Mayfield that patient refused to be transfered to [facility] untill he speaks with Ms Lucio-Mental Health Crisis staff who spoke with him earlier.Patient will speak to Ms Lucio ([phone])in the morning the next day and will decide about his transfer to [facility].
[2020-08-13] MEDS: Albuterol/Ipratropium 3 ML UPD VIAL UPD ×2 (05:47→11:14)
[2020-08-13] MEDS: LORazepam 1 MG TAB PO/SL ×6 (06:14→14:36)
[2020-08-13 06:29] LABS: Abs Immature Grans 0.01 10^3/uL (0.0-0.06); Absolute Basophil Count 0.01 10^3/uL (0.0-0.2); Absolute Lymphocyte Count 0.42 10^3/uL (1.2-3.4); Absolute Monocyte Count 0.06 10^3/uL (0.1-0.8); Basophils % 0.2; HGB 14.9 g/dL (13.5-17.5); Immature Grans % 0.2; Lymphocytes % 8.9; MCHC 36.3 % (32.0-36.0); MCV 88.2 fL (80-95); MPV 10.1 fL (8.0-11.0); Monocytes % 1.3; Neutrophils % 89.4; Nucleated RBC 0 %; Platelet Count 148 10^3/uL (130-400); RBC 4.65 10^6/uL (4.36-5.78); RDW 13.2 % (11.8-14.1); RDW-SD 42.7 fL
[2020-08-13] MEDS: DEXTROSE 5%-0.9% SALINE 1,000 ML 150 ML IV (06:36)
[2020-08-13 06:38] LABS: Anion Gap 11.6 mmol/L (3-11); BUN 8 mg/dL (7-18); CO2 24.4 mmol/L (21.0-32.0); CREATININE 0.9 mg/dL (0.70-1.30); Calcium 8.5 mg/dL (8.5-10.1); Chloride 103 mmol/L (98-107); Glucose 194 mg/dL (74-106); Magnesium 1.9 mg/dL (1.8-2.4); Potassium 3.4 mmol/L (3.5-5.1); Sodium 139 mmol/L (136-145)
[2020-08-13] MEDS: Folic Acid 1 MG TAB PO (07:44)
[2020-08-13] MEDS: amLODIPine 10 MG TAB PO (07:44)
[2020-08-13] MEDS: Thiamine 100 MG TAB PO (07:44)
[2020-08-13] MEDS: Sertraline 50 MG TAB 100 MG PO (07:44)
[2020-08-13] MEDS: predniSONE 20 MG TAB 40 MG PO (07:45)
[2020-08-13] MEDS: Cetirizine 10 MG TAB PO (07:45)
[2020-08-13] MEDS: Pantoprazole 40 MG TABCR PO (07:45)
[2020-08-13] MEDS: Multivitamin TAB 1 TAB PO (07:45)
[2020-08-13] MEDS: Budesonide/Formoterol 160/4.5 6 GM 60 PUFF INH IH ×2 (08:15→19:32)
--- NOTE | 2020-08-13 08:25 | PDOC.CMIN ---
- If Service Date Differs Date of service: 08/13/20 Time of Service: 08:25 Care Management Initial Assess REASON FOR HOSPITALIZATION:: Alcohol withdrawal, SI PAST MEDICAL HISTORY/PAST SURGICAL HISTORY:: Alcohol abuse. Anxiety. Asthma. Depression. Hypertension. S/P appendectomy. S/P cholecystectomy. Status post total hip replacement, right. Separation of left acromioclavicular joint. Trauma PREVIOUS FUNCTIONAL STATUS/SOCIAL/FAMILY SUPPORTS:: Resides in [place], Mother Nicky and sister Stephenie reside in [place] and are main supports. Struggles with alcoholism, otherwise independent in the community. CURRENT FUNCTIONAL STATUS:: Remains in ICU at this time for detox and is experiencing withdrawal symptoms. Martha [facility] arrived and cleared him from a stand point. She reports she will continue to follow him while inpatient and complete intake for service supports. CM will page [facility] once Ivan is medically cleared from detox. ADVANCE DIRECTIVES:: None on file at [facility]. Has patient been provided with info about the portal/API?: No Did the patient sign up for the portal?: No CODE STATUS:: Full Code INSURANCE COVERAGE / FINANCIAL ISSUES:: Medicaid CURRENT HOME/COMMUNITY SERVICES/EQUIPMENT:: None, currently. PRIMARY CARE PHYSICIAN:: Farzana Euceda POTENTIAL DISCHARGE NEEDS:: Coordinated placement at facility. PATIENT/FAMILY EDUCATION NEEDS:: Review discharge instructions, discuss Ask Me Three. ANTICIPATED BARRIERS TO DISCHARGE:: Alcohol withdrawal potential. TRANSPORTATION:: Anticipate via private vehicle with family. PLAN:: Ivan continues to be monitored and treated in the ICU for detox. [facility] continues to follow. CM to call [employer] once reports Ivan is through detox. Anticipate if returning home, he will transport via private vehicle with family.
--- NOTE | 2020-08-13 08:32 | CMSP_ITS ---
- If Service Date Differs Date of service: 08/13/20 Time of Service: 08:32 Care Management Safety Plan Status: Voluntary - Reason for Wait Reason for Wait: Inpatient Admission, Other (Medical Clearance due to ETOH withdrawal. ) VOLUNTARY FOR INPATIENT PSYCHIATRIC STABILIZATION. Patient is appropriate in all interactions since arriving at [facility]; Pt has demonstrated appropriate coping and communication skills, has articulated his or her needs and concerns and is fully engaged during staff interactions. KARTHIKEYAN spoke with RN at last evening after she screened him for admission. She reported he was not agreeable to admitting to the unit where they had one bed currently available so he would likely await bed availability in another unit until Saturday. ZARA Goldberg in the ICU reported this did not align with the same reports made by Ivan after completing the screening with SAJAN which led to some questions central to his ability or willingness to accurately report information to staff. Safety plan has been established with patient, and care team, to adhere to patient goals, identify restrictions based on behavioral status, address nutrition, and determine allowed personal belongings, tools for hygiene and personal care. Determine level of activity including ambulation, level of supervision, visitors, and determine privileges based on behaviors and level of engagement by pt. [facility] will continue to coordinated placement, Jamie documented that if Ivan is no longer voluntary for admission, involuntary hold EE will be sought. SAFETY PLAN: 1. Will remain on suicide precautions. In Paper Clothes or hospital gown. 2. Will remain in room under direct supervision of one-on-one staff at all times provided by [employer]; ABIDA, RELIGIOUS EDUCATOR nuclear worker technician. 3. May have paper cups, plates, finger foods as well as a cardboard spoon with which to eat meals. 4. Follow [facility] Management of the Admitted Behavioral Health Patient policy. 5. Comfort bath system, shower permitted at RN discretion. 6. No personal belongings 7. Visitors-Limited to vaccinated persons per visitor policy at this time per RN discretion. 8. Activities: soft CART items available at RN discretion. 9. Bathroom privileges, available in room without limitation. 10. Phone: incoming and outgoing calls permitted per RN discretion utilizing [facility] cordless phone. 11. Due to VOLUNTARY status, if patient wishes to leave [facility], staff will contact [facility] Crisis Screener ([phone]) and On-Call Steam Press Operator ([phone]) as soon as possible. In the event of elopement, notify [facility] Police ). Patient is currently voluntarily at [facility] and seeking inpatient admission when a bed becomes available. [facility] Frontline Caddy/Caddie Supervisor will continue seeking placement. Please contact the Inpatient Services Director Steam Press Operator ([phone]) and [facility] Caddy/Caddie Supervisor ([phone]) for any needed changes in the Safety Plan. Safety plan has been provided to interdepartmental care team.
[2020-08-13] MEDS: Potassium Chloride 20 MEQ TABCR 40 MEQ PO (09:20)
[2020-08-13] MEDS: Acetaminophen 325 MG TAB PO ×2 (09:24→19:48)
--- NOTE | 2020-08-13 09:50 | PT.INIE ---
Date of service: 08/13/20 Time of Service: 09:30 PT Notes Visit Reasons: Alcohol Withdrawal, Suicidal Ideation Inpatient Physical Therapy Evaluation Date: August 13, 2020 Referring Doctor: Sheri Schuler PT Orders: PT CONSULT: Limited Ability Precautions: Standard Patient Profile/Admitting Diagnosis: Mr Killian is a 59 year old male with PMHx of alcohol abuse with h/o alcohol withdrawal as well as h/o asthma requiring intubation in the past, hypertension, anxiety, depression, who after a long period of remission started drinking again. He presented to [facility] ED yesterday c/o feeling symptoms of alcohol withdrawal (headache, shakes, nausea, dry heaving), stating that his last drink was afternoon. PMHX: (Updated 08/12/20 @ 16:16 by Sheri Schuler MD) Alcohol abuse Anxiety Asthma Depression Hypertension Separation of left acromioclavicular joint Trauma Surgical History (Updated 08/12/20 @ 15:49 by Sheri Schuler MD) S/P appendectomy S/P cholecystectomy Status post total hip replacement, right Social History/Home Situation: Resides in [place], Mother Nicky and sister Stephenie reside in [place] and are main supports. Struggles with alcoholism, otherwise independent in the community. 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 Current Functional Limitations: Notes mild pain in his right hip and tailbone s/p fall. He reports falling into a wood stove Subjective: Ivan is alert and agreeable to PT consult this am. He notes he has a DOWNEY and reports pain in his tailbone and right hip. History of NAY right. Notes mild dizziness upon change of position. Objective: General Observation: Telemetry Mental Status: Alert and oriented x3 ROM: Right Upper Extremity: WNL and painfree Left Upper Extremity: Shoulder flexion 150 degrees, abduction 160 degrees, ER at side 60 degrees IR functional reach T12 notes end range pain on left clavicle region sustained a separation of his AC in May 2020 Right Lower Extremity: WNL with end range pain hip flexion 110 degrees, IR 20 degrees, ER 40 degrees. Left Lower Extremity: WNL and painfree Strength: Right Upper Extremity: Shoulder flexion 5/5, abduction 5/5, ER 5/5, Bicep 5/5 Tricep 5/5 Left Upper Extremity: Shoulder flexion 4+/5, abduction 5/5, ER 4+/5, Bicep 5/5, Tricep 5/5 Right Lower Extremity: Hip flexion 4/5, knee flexion 5/5, knee extension 5/5, DF/PF 5/5 Left Lower Extremity: Hip flexion 5/5, knee flexion 5/5, knee extension 5/5, DF/PF 5/5 Sensation: Intact to light touch bilateral UE/LE Bed Mobility/Transfers: Supine-sit: Independent Sit-supine: Independent Sit-stand: Independent Stand-sit: Independent Bed-chair: Supervision Gait: FWB without assistive device. Good donavan with good stride length. Ambulating in room independent with supervision only Balance: Static Sitting: Normal Dynamic Sitting: Normal Static Standing: Good Dynamic Standing: Good Special Tests: Mobility Limitations Standardized Measure [facility] AM-PAC 6 clicks Basic Mobility Inpatient Short Form: Raw Score: 23 CMS Score: 11% Informed Consent/Education: Patient instructed in purpose of PT consult and plan of care. Assessment: Patient is a 59 year old male referred to physical therapy services with the diagnosis of alcohol withdrawal. Patient presents with clinical signs and symptoms consistent with diagnosis. Patient demonstrates WFL ROM of bilateral UE/LE. He is independent with all transfers and ambulation in room. Ivan continues to be monitored and treated in the ICU, anticipate once medically cleared he will transfer to psychiatric hospitalization via vp celebrity services transport, coordinated by CM. [facility] continues to follow. Do not feel he required further PT services at this time. Patient is assessed as a Low 24331 complexity based on the following: History: As above Examination: As above Presentation: Stable Decision Making: Low Plan of Care/Treatment Plan: Patient to be discharged once medically cleared via MD. Will be considered discharged from PT services at this time. TREATMENT CODE/[place]: [id number] 9:30 am 20 minutes Madison Ocampo,[facility]
--- NOTE | 2020-08-13 11:10 | PGE_ITS ---
Date of Service Date of service: 08/13/20 Time of Service: 11:10 Assessment and Plan Assessment and plan (1) Alcohol withdrawal: Status: Acute Assessment and plan: Patient is scoring on CIWA scale from 2 to up to 11. No visual or tactile hallucinations but w/ headache and minimal tremors. Patient is now denying any SI or HI thoughts. At present patient is expressing that he only wants to return home and is denying any mental health services at present. MH counselor will cont. to keep him on their list and revisit him if he decides to leave [facility] and they will revisit him once he is out of acute alcohol withdrawal. As he has already been receiving benozodiazepines (lorazepam 10 mg total since yesterday), I have elected to not start him on phenobarbital to avoid complic ations of respiratory depression from mixing phenobarb and benzodiazepines. I will start him on a longer acting benzodiazepine (librium) on a scheduled dose. Qualifiers: Complication of substance-induced condition: uncomplicated Qualified Code(s): F10.230 - Alcohol dependence with withdrawal, uncomplicated (2) Asthma exacerbation: Status: Acute Assessment and plan: No fever and no sputum production. Treat as asthma exacerbation w/ prednisone, nebs, symbicort. (3) Suicidal ideation: Status: Acute Assessment and plan: In setting of substance use. 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 Outpatient follow up with orthopedic surgery. He was a no-show there for his last appointment but has otherwise been followed by Dr Castro who was considering surgical intervention if the patient did not improve after 6 wks of PT. Qualifiers: Encounter type: subsequent encounter Qualified Code(s): S43.102D - Unspecified dislocation of left acromioclavicular joint, subsequent encounter (6) Alcohol abuse: Status: Chronic Assessment and plan: and [facility] health will address w/ him his options once he is over acute alcohol withdrawal. (7) DVT prophylaxis: Status: Acute Assessment and plan: SC enoxaparin (8) Discharge planning issues: Status: Acute Assessment and plan: Full code - confirmed in conversation with the patient per Dr. Schuler Will monitor today in the ICU but if his CIWA does not escalate this afternoon then can transfer to med/surg as long as he does not need parenteral benzodiazepines Subjective Subjective Interval history since last seen: Patient presented w/ symptoms of depression and suicidal ideation although w/ no specific plans and was intoxicated w/ JIMMY 120 mg/dL on 08/12 after a 5 day binge of drinking up to a 1 liter of vodka per day. He reportedly had his last drink on 08/10. He presented w/ symptoms of acute alcohol withdrawal (shaking, nausea, headaches, elevated BP and tachycardia although no hallucinations). See Dr. Schuler's admission H&P from yesterday. Today he continues to score on CIWA from as low as 2 to as high as 11. He still has some tremors and feels depressed but denies any HI or SI. He feels that his Zoloft is not working for him. MH met w/ him and I spoke w/ Martha about him and at present the patient only wants to return home and does not want any psychological services. As he is still in withdrawal, I feel that he needs to remain hospitalized for medical reasons and Martha has indicated to me that she will follow up with him once he is out of alcohol withdrawal but will see him sooner if he decides to leave [facility]. Exam Narrative Exam Narrative: Middle aged white male, alert and oriented x 3; plethoric facial appearance; skin not diaphoretic Lungs clear Heart regular but tachycardic, no murmur or rub\ Neuro: alert and oriented x 3, no hallucinations. He has tremors most noticeable w/ intention such as performing finger to nose testing Objective Last Vital Signs Temp 36.3 C L 08/13/20 07:49 Pulse 85 08/13/20 07:01 Resp 14 08/13/20 07:50 BP 151/73 H 08/13/20 07:01 Pulse Ox 91 L 08/13/20 07:49 Laboratory Results - last 24 hr 08/12/20 08/12/20 08/12/20 08:48 11:47 13:25 WBC RBC Hgb Hct MCV MCH MCHC RDW Plt Count MPV Immature Gran % Neutrophils % Lymphocytes % Monocytes % Eosinophils % Basophils % Nucleated RBC % Absolute Neutrophils Absolute Lymphocytes Absolute Monocytes Absolute Eosinophils Absolute Basophils VBG pH 7.47 H VBG pCO2 28 L VBG pO2 74 VBG HCO3 20 L VBG Total CO2 18 L VBG O2 Saturation 96 VBG Base Excess -3 L Sodium Potassium Chloride Carbon Dioxide Anion Gap BUN Creatinine Estimated GFR/1.73 m2 Glucose Calcium Magnesium Procalcitonin < 0.1 COVID-19 Source Cancelled SARS-CoV-2 (PCR) Cancelled 08/12/20 08/13/20 08/13/20 13:35 06:10 06:10 WBC 4.70 D RBC 4.65 Hgb 14.9 Hct 41.0 MCV 88.2 MCH 32.0 MCHC 36.3 H RDW 13.2 Plt Count 148 MPV 10.1 Immature Gran % 0.2 Neutrophils % 89.4 Lymphocytes % 8.9 Monocytes % 1.3 Eosinophils % 0.0 Basophils % 0.2 Nucleated RBC % 0 Absolute Neutrophils 4.20 Absolute Lymphocytes 0.42 L Absolute Monocytes 0.06 L Absolute Eosinophils 0.00 Absolute Basophils 0.01 VBG pH VBG pCO2 VBG pO2 VBG HCO3 VBG Total CO2 VBG O2 Saturation VBG Base Excess Sodium 139 Potassium 3.4 L Chloride 103 Carbon Dioxide 24.4 Anion Gap 11.6 H BUN 8 Creatinine 0.9 Estimated GFR/1.73 m2 >= 60.00 Glucose 194 H D Calcium 8.5 Magnesium 1.9 Procalcitonin COVID-19 Source Nasal/nares SARS-CoV-2 (PCR) Negative
[2020-08-13] MEDS: chlordiazePOXIDE 25 MG CAP 50 MG PO ×3 (11:36→22:47)
[2020-08-13] MEDS: Sertraline 50 MG TAB PO (12:20)
--- NOTE | 2020-08-13 13:10 | W.INMHPGNOTE ---
Date of service: 08/13/20 Time of Service: 13:10 Mental Health Crisis Note Presenting Issue How did you arrive at the ED and why did you come: Pt arrived 6. while under the influence of ETOH and making statements of SI. Precipitating Factors Pt denied SI and HI today. He is not showing signs of delusions however, is sedated by the Ativan he needed for detox symptoms. Disposition BEHAVIOR: Pt is cooperative and engaged. He gets a little confused and side tracked. At one point he was trying to find his girlfriends phone number and could not figure out how to do that without calling her. He needed assistance to find it. EYE CONTACT: Pt makes fair eye contact but it is inconsistent. MOOD: Pt is reporting that he is still depressed but is realizing what he needs to be successful. AFFECT: Pt's affect is flat mostly. APPETITE: Pt is eating well. SLEEP(trouble falling/staying asleep: Pt reported he slept okay. Plan This clinician will continue to check in with the Pt while at [facility] to ensure he follows the safety plan. He and his girlfriend have agreed to daily check in's. Care management will put a referral into the [facility]. Pt to engage in AA as well and a counseling referral has been put in place through [facility]. Signature Clinician's Name/Title: Martha Mancia MS, [facility] Emergency Services Clinician, [facility]
[2020-08-13 14:21] LABS: Potassium 3.3 mmol/L (3.5-5.1)
[2020-08-13] MEDS: Ibuprofen 400 MG TAB PO (14:37)
[2020-08-13] MEDS: Normal Saline Flush 10 ML SYR IVP (19:33)
[2020-08-14] VITALS (43 sets, daily range): BP systolic 112–149; BP diastolic 70–99; PULSE 68–103; RESP 1–22; TEMP 36.1–37.3; O2SAT 90–98
[2020-08-14] MEDS: Albuterol/Ipratropium 3 ML UPD VIAL UPD (05:12)
[2020-08-14 07:09] LABS: ALT 33 U/L (16-63); AST 30 U/L (15-37); Albumin 3.8 g/dL (3.4-5.0); Alkaline Phosphatase 81 U/L (46-116); Anion Gap 8.9 mmol/L (3-11); BUN 7 mg/dL (7-18); Bilirubin, Direct 0.2 mg/dL (0.0-0.2); Bilirubin, Total 1.2 mg/dL (0.2-1.0); CO2 26.1 mmol/L (21.0-32.0); CREATININE 0.9 mg/dL (0.70-1.30); Calcium 8.9 mg/dL (8.5-10.1); Chloride 107 mmol/L (98-107); Glucose 102 mg/dL (74-106); Potassium 3.3 mmol/L (3.5-5.1); Sodium 142 mmol/L (136-145); Total Protein 6.8 g/dL (6.4-8.2)
[2020-08-14] MEDS: amLODIPine 10 MG TAB PO (07:53)
[2020-08-14] MEDS: Pantoprazole 40 MG TABCR PO (07:53)
[2020-08-14] MEDS: Cetirizine 10 MG TAB PO (07:54)
[2020-08-14] MEDS: Folic Acid 1 MG TAB PO (07:54)
[2020-08-14] MEDS: Multivitamin TAB 1 TAB PO (07:54)
[2020-08-14] MEDS: chlordiazePOXIDE 25 MG CAP 50 MG PO ×4 (07:54→19:29)
[2020-08-14] MEDS: Sertraline 50 MG TAB 150 MG PO (07:55)
[2020-08-14] MEDS: Acetaminophen 325 MG TAB PO ×2 (07:55→12:15)
[2020-08-14] MEDS: predniSONE 20 MG TAB 40 MG PO (07:55)
[2020-08-14] MEDS: Thiamine 100 MG TAB PO (07:55)
[2020-08-14] MEDS: LORazepam 2 MG/ML VIAL IVP (07:56)
[2020-08-14] MEDS: Budesonide/Formoterol 160/4.5 6 GM 60 PUFF INH IH ×2 (07:56→19:29)
--- NOTE | 2020-08-14 09:40 | CMPROGNOTE_ITS ---
Care Management Progress Note S/O: Ivan continues to be closely monitored and treated for withdrawal via CIWA protocol. Per MD, he will transfer to M/S level of care today. CM continues to follow. A: 59 year old male admitted to [facility] 08/12/20 for alcohol withdrawal, SI P: Ivan will return home when ready per MD, he completed an intake with Yesika DAVIES and will follow up with new service connection and contract for safety. His girlfriend, mother and sister are all supportive and involved in safety planning for him to return home post detox. CM to page Director Of Vital Statistics for initial contact tomorrow; when Ivan is anticipated to be less confused and further through withdrawal. CM will continue to follow, anticipate Ivan will transport home via private vehicle with his significant other, Sophia.
--- NOTE | 2020-08-14 10:33 | W.PM.PROGNOT ---
Date of Service Date of service: 08/14/20 Time of Service: 10:33 Assessment and Plan Assessment and plan (1) Alcohol withdrawal: Status: Acute Assessment and plan: improving. CIWA now down to 0, although he was as high as 11 as of 7:30 am today (per his nurse his score was increased d/t headache, slight agitation and anxiety. Patient is now on Librium 50 mg qid. I will plan to taper this beginning tomorrow. If he does leave the hospital later today, I will write for a taper over the next 48 hr. Qualifiers: Complication of substance-induced condition: uncomplicated Qualified Code(s): F10.230 - Alcohol dependence with withdrawal, uncomplicated (2) Asthma exacerbation: Status: Acute Assessment and plan: No fever and no sputum production. Treat as asthma exacerbation w/ prednisone, nebs, symbicort. Improving. Will have him complete a 5 day course of prednisone. I will cut the dose in half to avoid complications such as steroid hallucinations, hyperglycemia, hypertension Qualifiers: Asthma severity: mild Asthma persistence: intermittent Qualified Code(s): J45.21 - Mild intermittent asthma with (acute) exacerbation (3) Suicidal ideation: Status: Acute Assessment and plan: In setting of substance use. Plan is as follows per Martha Mancia, mental health advisor: This clinician will continue to check in with the Pt while at [facility] to ensure he follows the safety plan. He and his girlfriend have agreed to daily check in's. Care management will put a referral into the [facility]. Pt to engage in AA as well and a counseling referral has been put in place through [facility]. 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 Outpatient follow up with orthopedic surgery. He was a no-show there for his last appointment but has otherwise been followed by Dr Castro who was considering surgical intervention if the patient did not improve after 6 wks of PT. Qualifiers: Encounter type: subsequent encounter Qualified Code(s): S43.102D - Unspecified dislocation of left acromioclavicular joint, subsequent encounter (6) Alcohol abuse: Status: Chronic Assessment and plan: Plan as per BH and CM plans for follow up w/ alcohol onsite health coach and AA (7) Hypokalemia: Status: Acute Assessment and plan: probably secondary to poor nutritional intake and alcohol consumption. Will give po replacement and either check repeat levels tomorrow or get follow up labs for his PCP to monitor. Mg++ level is ok at 2.0. (8) DVT prophylaxis: Status: Acute Assessment and plan: SC enoxaparin (9) Discharge planning issues: Status: Acute Assessment and plan: Full code - confirmed in conversation with the patient per Dr. Schuler transfer out of ICU to med/surg; dc telemetry; dc home tomorrow if he is agreeable to staying otherwise will dc home late today w/ librium taper over 48 hr Subjective Subjective Interval history since last seen: Patient is doing better today. Last night he was having some problems w/ ADL performance w/ missing the urinal while voiding and peeing on the curtain, tremulousness and CIWA scores up to 11. He is now on librium 50 mg qid but still has required prn lorazepam but no parenteral benzodiazepines. His CIWA is now down to a 0. He has had a headache this morning but probably d/t lack of food. He was only on clear liquids. I have changed him to a regular diet. He has had no arrhythmias. I think given the lack of arrythmias, no hallucinations and not requiring parenteral benzodiazepines, he can be transferred to med/surg. he would like to go home today. I told him that I would revisit him this afternoon and we can discuss possible discharge on a tapering dose of librium. he indicated that he has good family support w/ his parents nearby and his girlfriend from [place], [place] reportedly will move in with him. I will need to confirm his family social support. He also will be followed by mental health upon discharge. Exam Narrative Exam Narrative: Middle age white male, alert and oriented x 3; not diaphoretic, no hallucinations No tremors and no asterixis Lungs clear Heart RRR Abdomen: soft, nontender Objective Last Vital Signs Temp 36.1 C L 08/14/20 09:01 Pulse 90 08/14/20 05:42 Resp 22 08/14/20 09:01 BP 127/86 08/14/20 05:36 Pulse Ox 95 08/14/20 09:01 Laboratory Results - last 24 hr 08/13/20 08/14/20 14:09 06:05 Sodium 142 Potassium 3.3 L 3.3 L Chloride 107 Carbon Dioxide 26.1 Anion Gap 8.9 BUN 7 Creatinine 0.9 Estimated GFR/1.73 m2 >= 60.00 Glucose 102 D Calcium 8.9 Magnesium 2.0 Total Bilirubin 1.2 H Conjugated Bilirubin 0.2 AST 30 ALT 33 Alkaline Phosphatase 81 Total Protein 6.8 Albumin 3.8
[2020-08-14] MEDS: Potassium Chloride 10 MEQ CAPCR 40 MEQ PO (11:37)
[2020-08-14] MEDS: LORazepam 1 MG TAB PO/SL ×2 (12:16→19:30)
[2020-08-14] MEDS: Ibuprofen 400 MG TAB PO (13:25)
[2020-08-14] MEDS: Potassium Chloride 10 MEQ CAPCR 20 MEQ PO ×2 (13:26→19:29)
[2020-08-14] MEDS: Enoxaparin 40 MG/0.4 ML SYR SC (13:26)
--- NOTE | 2020-08-14 17:23 | NUR.NOTE ---
Nursing Note: At 1150 on 08/14/20, this RN received report on the pt. from the OCCUPATIONAL WORK EXPERIENCE TEACHER. At 1155 on 08/14/20, the pt. was transferred from the ICU to Med/Surg per MD order. Pt. was settled in and oriented to room 211. VS obtained; VSS. Pt. complaining of moderate anxiety and pain. Pt. to be medicated at the next available time per the MAR. Head to toe assessment performed. See Shift Assessment flowsheet for more information. RN will reassess as necessary.
[2020-08-14] MEDS: Normal Saline Flush 10 ML SYR IVP (19:28)
[2020-08-15 07:06] LABS: Anion Gap 10.3 mmol/L (3-11); BUN 18 mg/dL (7-18); CO2 24.7 mmol/L (21.0-32.0); Calcium 8.7 mg/dL (8.5-10.1); Chloride 107 mmol/L (98-107); Glucose 101 mg/dL (74-106); Potassium 3.8 mmol/L (3.5-5.1); Sodium 142 mmol/L (136-145)
[2020-08-15 07:33] VITALS: BP 134/91; PULSE 91; RESP 18; TEMP 36.5; O2SAT 96
[2020-08-15] MEDS: amLODIPine 10 MG TAB PO (07:39)
[2020-08-15] MEDS: Multivitamin TAB 1 TAB PO (07:39)
[2020-08-15] MEDS: Folic Acid 1 MG TAB PO (07:39)
[2020-08-15] MEDS: predniSONE 20 MG TAB 40 MG PO (07:39)
[2020-08-15] MEDS: Cetirizine 10 MG TAB PO (07:39)
[2020-08-15] MEDS: Thiamine 100 MG TAB PO (07:39)
[2020-08-15] MEDS: chlordiazePOXIDE 25 MG CAP 50 MG PO (07:39)
[2020-08-15] MEDS: Pantoprazole 40 MG TABCR PO (07:39)
[2020-08-15] MEDS: Potassium Chloride 10 MEQ CAPCR 20 MEQ PO (07:39)
[2020-08-15] MEDS: Sertraline 50 MG TAB 150 MG PO (07:40)
[2020-08-15] MEDS: Budesonide/Formoterol 160/4.5 6 GM 60 PUFF INH IH (07:54)
--- NOTE | 2020-08-15 10:14 | DSE_ITS ---
Date of service: 08/15/20 Time of Service: 10:14 DS: Diagnosis Discharge Diagnosis (1) Alcohol withdrawal: Status: Resolved Asessment and Plan: Patient presented to the ER in acute alcohol withdrawal (see admission H&P and ER notes). His highest CIWA score was 25 while in the ER. He was admitted to the ICU and put on CIWA protocol w/ symptomatic triggered dosing of lorazepam however he was put on chlordiazepoxide (Librium) 50 mg qid which really helped control his symptoms and his CIWA scores came down to 0 to 2. He had some mild hypokalemia which was corrected w/ oral and iv potassium. Mental health evaluated him d/t his suicidal thoughts that he had when he was intoxicated. Mental health decided that he did not need inpatient psychiatric care and felt that he could follow up as outpatient once he completed detox. Patient was put back on his antidepressants. At the time of discharge he was very hopefuly, forward thinking. The night before discharge he participated in a telehealth meeting w/ [facility]. He has made plans for his girlfriend to move in w/ him from [place], [place]. He has indicated that she is abstinent of alcohol. Patient was discharged w/ 2 days of librium 25 mg bid prn anxiety/ramakrishna tation but likely will not need this. (2) Asthma exacerbation: Status: Acute Asessment and Plan: Patient had a mild exacerbation of asthma w/ nonproductive cough and wheezing but did not require oxygen nor antibiotics. He was put on DuoNeb aerosols and prednisone. He will be discharge w/ 3 days of prednisone 40 mg per day and an Rx for albuterol Hfa (3) Suicidal ideation: Status: Resolved Asessment and Plan: as above. 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 no need for any home health Discharge Plan Disposition Patient Disposition: HOME Condition: Good Discharge Details Reason For Visit: Alcohol Withdrawal, Suicidal Ideation Admit Date/Time: 08/12/20 13:14 Admit Provider: Sheri Schuler Attending Provider: Sheri Schuler Primary Care Provider: Farzana Euceda Hospital Course Hospital Course: Mr Killian is a 59 year old male with PMHx of alcohol abuse with h/o alcohol withdrawal but not delirium or seizures, as well as h/o asthma requiring intubation in the past, hypertension, anxiety, depression, who after a long period of remission started drinking again 5 days ago and has been drinking 1 L of vodka per day. He presented to [facility] ED today c/o feeling symptoms of alcohol withdrawal (headache, shakes, nausea, dry heaving), stating that his last drink was yesterday afternoon. He states his withdrawal usually takes a couple of days. He also endorsed feeling suicidal and hopeless. He endorses the trigger to drinking and feeling this way was his ex and children getting together and him not being invited. He states that he has also been having chest tightness and nonproductive cough for last week. He always feels this way every spring and usually has to take prednisone but not antibiotics. He is fully vaccinated against COVID-19 (Pfizer, 2nd dose 6 weeks ago) and denies any contact with anyone who has confirmed or suspected COVID-19. Denies fever, e ndorses feeling hot, denies runny nose or sore throat. Finally, he endorses falling while intoxicated 2 days ago. He had a negative workup of this in the ED, but continues to report pain in his left shoulder - has AC joint separation diagnosed in May after a skiing accident. At this time, the patient is considered a voluntary admission from mental health stand point. Hospitalist admission was requested while awaiting a psychiatric bed and until medically cleared. The patient was showing signs of EtOH w/d in the ED and received 3 mg of ativan for a CIWA score of 12. Patient was admitted to the ICU where was monitored per CIWA protocol and started on symptom triggered use of lorazepam. He was also felt to have an exacerbation of his asthma and was put on albuterol aerosols and prednisone. Because of his frequent need for lorazepam, he was put on librium scheduled dose beginning on 08/14 at 50 mg qid. He has done well with this and his CIWA scores have gone to 0. He was transferred out of the ICU on 08/14. He no longer has tremors. He never had any withdrawal seizures nor any hallucinations. He had a virtual tele visit w/ AA the night before discharge. He indicated that he will follow up w/ AA as outpatient and his girlfriend who is abstinent will be moving in with him to support him in his sobriety. Mental health met with him and felt that he was no longer having any suicidal thinking. They felt that he did not require in patient psychiatric treatment but recommend outpatient follow up. Home Meds and New Rx's Prescriptions: New prednisone 20 mg tablet 40 mg PO DAILY 3 Days Qty: 6 RF: 0 chlordiazepoxide HCl 25 mg capsule 25 mg PO BID PRN (Reason: anxiety) 2 Days Qty: 4 RF: 0 Continued amlodipine 10 mg tablet 10 mg PO DAILY RF: 0 sertraline [Zoloft] 50 mg tablet 100 mg PO DAILY RF: 0 fluticasone propion-salmeterol [Advair Diskus] 250-50 mcg/dose Blister With Device 2 inh INHALATION BID Qty: 1 RF: 0 Changed albuterol sulfate 90 mcg/actuation Hfa Aerosol Inhaler 2 puff INHALATION Q4H PRNQty: 18 RF: 0 Discharge Instructions Instructions: Alcohol Withdrawal (DC), Suicide Prevention (DC) Additional Instructions: Finish all of the prednisone given to you for your asthma exacerbation. Use the albuterol inhaler as needed for wheezing. The Rx for librium is to be used on an as needed basis for agitation or anxiety over the next 2 days. At this point your alcohol withdrawal seems to be under control. You should continue to follow up w/ alcoholics anonymous and meet w/ a recovery counselor (info was given to you by case management). You should also make an appointment to meet w/ a mental health counselor through [facility] (info was given to you by case management and Martha Mancia from [facility]). Please refrain from further alcohol intake. Stand Alone Forms: Nursing Discharge Form Referrals: [facility] [Other] (Please call to make a follow up. ) Farzana Euceda [Primary Care Provider] - 08/23/20 1:00 pm Activity:: Activity as Tolerated Equipment/Supplies:: No Equipment Needed Diet:: Normal Diet Discharge Orders Discharge Orders: Discharge Order (Routine); Ordered 08/15/20 Ordered By: Tyree Diamond DS: Summary Time Spent with Patient providing and/or coordinating discharge services: Less than 30 minutes Status at Discharge Functional status at discharge: independent ambulation Overall status at discharge: patient is back to baseline Mental Status: mental status grossly normal Speech and Movement: speech and movement normal Mood: congruent mood Affect: normal affect Exam Narrative Exam Narrative: Middle age male alert and oriented Lungs are clear Heart is regular Neuro/psych: not suicidal; no tremors, no asterixis, normal ROM and sensation. No ataxia. Psych Mental Status: mental status grossly normal Speech and Movement: speech and movement normal Mood: congruent mood Affect: normal affect DS: Data Vitals/I&O Vitals and I&O: Vital Signs Temperature 36.5 C 08/15/20 07:33 Temperature Source Tympanic 08/15/20 07:33 Pulse 91 H 08/15/20 07:33 Pulse Rhythm Regular 08/15/20 07:35 Pulse 92 H 08/14/20 10:30 Respiratory Rate 18 08/15/20 07:33 Respiratory Effort Non-Labored 08/15/20 07:35 Respiratory Depth Normal 08/15/20 07:35 Respiratory Pattern Normal 08/15/20 07:35 Blood Pressure 134/91 H 08/15/20 07:33 Blood Pressure Mean 106 08/14/20 10:00 Blood Pressure Position Supine 08/14/20 09:01 Pulse Oximetry 96 08/15/20 07:33 Oxygen Delivery Method Room Air 08/15/20 07:33 Oxygen Flow Rate 0 08/15/20 07:33 Pain Level 0 08/14/20 23:51 Comment 08/14/20 15:45 Intake & Output 08/14/20 08/14/20 08/15/20 11:59 23:59 11:59 Intake Total 20 / 1210 1190 / 1210 Output Total 300 / 300 Balance -280 / 910 1190 / 910 Weight 89.1 kg 88.1 kg Intake: IV 20 / 30 10 / 30 Oral 0 / 1180 1180 / 1180 Output: Urine 300 / 300 Other: Urine Color Straw Urine Appearance Clear Urine Odor None Comment Void x1 in the toilet. Not visualized by RN. Voiding Methods Urinal Toilet Data Completed and Pending Labs on day of discharge: Labs from last 24 hours 08/15/20 06:15 Sodium 142 Potassium 3.8 Chloride 107 Carbon Dioxide 24.7 Anion Gap 10.3 BUN 18 D Creatinine 1.0 Estimated GFR/1.73 m2 >= 60.00 Glucose 101 Calcium 8.7 PFSH Medical History (Updated 08/15/20 @ 11:01 by Tyree Diamond) Alcohol abuse Anxiety Asthma Depression Hypertension Separation of left acromioclavicular joint Trauma Surgical History (Updated 08/12/20 @ 15:49 by Sheri Schuler MD) S/P appendectomy S/P cholecystectomy Status post total hip replacement, right Family History (Updated 08/12/20 @ 15:49 by Sheri Schuler MD) Mother Heart disease Stroke Hypertension Breast cancer Social History (Updated 08/12/20 @ 15:50 by Sheri Schuler MD) Smoking/Tobacco Use Status: Former Tobacco Use Smoking risk assessment performed?: Yes Alcohol Intake: current Alcohol Intake frequency: 3 or more drinks per day Alcohol type: other Counseling given: Yes Counseling provided: provider counseling Drug use: Never Substance use type: does not use Details: has not smoked in years (last smoked a couple weeks ago) currently abstaining from alcohol (has been drinking recently) no substance use in 10 years Current gender identity: male Do you feel safe at home: Yes Do you feel safe in your relationship?: Yes
--- NOTE | 2020-08-15 14:21 | PDOC.CMDIS ---
LACE Index Scoring Tool - Questions: Length of Stay (in days): 3 Acuity (Admit via E.D.?): Yes E.D. Visits: 6 - Answers: Total Score: 10 Risk of Readmission: High Risk Care Management Discharge Reason for Hospitalization: Alcohol withdrawal, SI Discharge Plan: Ivan will return home when ready per MD, he completed an intake with Martha; [facility] and will follow up with new service connection and contract for safety. His girlfriend, mother and sister are all supportive and involved in safety planning for him to return home post detox. KARTHIKEYAN paged reading recovery teacher for follow up as well. Ivan will transport home via private vehicle with family. Patient/Family Education Needs: Review discharge instructions, discuss Ask Me Three. - MH Services (Omit if N/A) Current MH Services: [facility] (New referral: Martha completed intake and safety contract)
--- NOTE | 2020-08-15 16:54 | NUR.NOTE ---
Nursing Note: 08/15/2020 16:54 This RN called patient at this time on his cell phone number listed in his chart. Patient was fully clothed prior to shift beginning this morning anticipating discharge. Patient was discharged around lunch time. This RN did not see documentation in patient's chart that his IV was discontinued prior to discharge when WELT CUTTER, Quinten Sims, took patient out of building. Patient reported I took it out myself and that a bandaid was applied. Charge nurse, Selina Elaine, notified.
--- NOTE | 2020-08-15 18:40 | INDS_ITS ---
Date of service: 08/15/20 PT Notes Visit Reasons: Alcohol Withdrawal, Suicidal Ideation Inpatient Physical Therapy Evaluation Date: August 15, 2020 Dates of service: August 13, 2020 only This is a clinical summary of care provided for the duration of dates listed above. No charge was made in the completion of this documentation. Referring Doctor: Sheri Schuler PT Orders: PT CONSULT: Limited Ability Precautions: Standard Patient Profile/Admitting Diagnosis: Mr Killian is a 59 year old male with PMHx of alcohol abuse with h/o alcohol withdrawal as well as h/o asthma requiring intubation in the past, hypertension, anxiety, depression, who after a long period of remission started drinking again. He presented to [facility] ED yesterday c/o feeling symptoms of alcohol withdrawal (headache, shakes, nausea, dry heaving), stating that his last drink was afternoon. PMHX: Medical History(Updated 08/12/20 @ 16:16 by Sheri Schuler MD) Alcohol abuse Anxiety Asthma Depression Hypertension Separation of left acromioclavicular joint Trauma Surgical History (Updated 08/12/20 @ 15:49 by Sheri Schuler MD) S/P appendectomy S/P cholecystectomy Status post total hip replacement, right Social History/Home Situation: Resides in [place], Mother Nicky and sister Stephenie reside in [place] and are main supports. Struggles with alcoholism, otherwise independent in the community. 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 Current Functional Limitations: Notes mild pain in his right hip and tailbone s/p fall. He reports falling into a wood stove Subjective: NT. See most recent [employer] notes. Objective: General Observation: NT. See most recent [employer] notes. Mental Status: NT. See most recent [employer] notEs. ROM: Right Upper Extremity: WNL and painfree Left Upper Extremity: Shoulder flexion 150 degrees, abduction 160 degrees, ER at side 60 degrees IR functional reach T12 notes end range pain on left clavicle region sustained a separation of his AC in May 2020 Right Lower Extremity: WNL with end range pain hip flexion 110 degrees, IR 20 d egrees, ER 40 degrees. Left Lower Extremity: WNL and painfree Strength: Right Upper Extremity: Shoulder flexion 5/5, abduction 5/5, ER 5/5, Bicep 5/5 Tricep 5/5 Left Upper Extremity: Shoulder flexion 4+/5, abduction 5/5, ER 4+/5, Bicep 5/5, Tricep 5/5 Right Lower Extremity: Hip flexion 4/5, knee flexion 5/5, knee extension 5/5, DF/PF 5/5 Left Lower Extremity: Hip flexion 5/5, knee flexion 5/5, knee extension 5/5, DF/PF 5/5 Sensation: Intact to light touch bilateral UE/LE Bed Mobility/Transfers: Supine-sit: Independent Sit-supine: Independent Sit-stand: Independent Stand-sit: Independent Bed-chair: Supervision Gait: FWB without assistive device. Good donavan with good stride length. Ambulating in room independent with supervision only Balance: Static Sitting: Normal Dynamic Sitting: Normal Static Standing: Good Dynamic Standing: Good Assessment: PT evaluation only on 08/13/2020. Patient is a 59 year old male referred to physical therapy services with the diagnosis of alcohol withdrawal. Patient presents with clinical signs and symptoms consistent with diagnosis. Patient demonstrates WFL ROM of bilateral UE/LE. He is independent with all transfers and ambulation in room. TREATMENT CODE/TIME: PA Thank you for the opportunity to participate in the care of this patient. Hermila Hernández PT, DPT, CLT [facility] [place], [place]
== END 2020-08-15 12:27 | disposition home or self-care (01) | DRG 897 ==
LOC: ER 13:26 → ICU 14:32 → MS 08-14 12:01
PROVIDERS: Internal Medicine; Admitting Provider Internal Medicine; Emergency Provider Physician Assistant; PCP Physician Assistant; Visit Provider Internal Medicine
DX: F10.139 Alcohol abuse with withdrawal, unspecified (principal); E87.2 Acidosis; R45.851 Suicidal ideations; J45.21 Mild intermittent asthma with (acute) exacerbation; F32.9 Major depressive disorder, single episode, unspecified; Z20.822 Contact with and (suspected) exposure to COVID-19; M24.412 Recurrent dislocation, left shoulder; I10 Essential (primary) hypertension; F41.9 Anxiety disorder, unspecified; Z87.891 Personal history of nicotine dependence; E87.6 Hypokalemia; R51.9 Headache, unspecified; W18.39XA Other fall on same level, initial encounter
CPT/HCPCS: 36415; 80048; 80053; 80076; 80307; 82805; 84145; 87635; 93005; 94640; 96361; 96365; 96375; 97162; 99285; J1650; 70450; 71045; 72110; 72125; 73502; 80320; 81003; 81015; 83735; 84132; 84443; 85025; 93010; 99223; 99232; 99238; J2060; J2765; J2930; J7042; J7512; J7613; J7620